=== PATIENT | male | born 1985 | race Caucasian/White ===

== ENCOUNTER 2024-08-13 12:28 | Emergency (ER) | payer BC, SELFPAY ==
[2024-08-13 12:33] VITALS: BP 153/85; PULSE 76; RESP 18; TEMP 36.9; O2SAT 100
--- NOTE | 2024-08-13 12:33 | ED.GENADULT ---
HPI - General Adult General Chief complaint: Urogenital Problems, Male Stated complaint: Back pain hard to urinate Time Seen by Provider: 08/13/24 12:32 History of Present Illness HPI narrative: Patient presents to the emergency department complaining of lower back pain and difficulty urinating. Patient states this started about a week ago and since has just gotten worse. Patient states he was seen for this before and there was nothing found. Patient states he is experiencing pain when he pees and also states he is having pain with bowel movements as well. Patient feels like there could be swelling making the flow of urine difficult . Denies fevers . 39-year-old man presenting to the emergency department with concern of severe back pain and some difficulty urinating. Has actually been urinating frequently. This seems to began about a week ago and is worsening. He is taking lots of Advil he reports. Latest stool which was 2 days ago was dark. Before that maybe was 4 days ago. Normally would have bowel movement every day. He does take omeprazole regularly since had had a similar occurrence of these pains about a year ago. Was told he had an ulcer. He does have some pain in the upper abdomen; he describes intermittent spasming in the left upper abdomen while he is at work. 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 Being evaluated before he thinks did include some imaging and nothing has ever been found. He is worried about maybe some prostatic inflammation as he is feeling full or pain in the groin area. No history of kidney stones. No fever although he reports his torso feeling hot. His back pain now is just across his back he gestures. Only way he can feel better he says this to curl up. He has more pain when he lays flat. History of appendicitis Related Data Home Medications ?Medication ?Instructions ?Recorded ?Confirmed alprazolam 1 mg tablet 1 mg PO DAILY PRN 08/13/24 08/13/24 dextroamphetamine-amphetamine 10 1 tab PO DAILY PRN 08/13/24 08/13/24 mg tablet dextroamphetamine-amphetamine 30 1 tab PO QAM 08/13/24 08/13/24 mg tablet omeprazole 40 mg capsule,delayed mg DAILY 08/13/24 release Previous Rx's ?Medication ?Instructions ?Recorded oxycodone 5 mg capsule 5 - 10 mg (1 - 2 x 5 mg) PO TID 08/13/24 PRN pain #8 caps sulfamethoxazole 800 1 tab PO BID #24 tabs 08/13/24 mg-trimethoprim 160 mg tablet (Bactrim DS) Allergies Allergy/AdvReac Type Severity Reaction Status Date / Time No Known Drug Allergies Allergy Verified 08/13/24 12:39 Review of Systems Status of ROS: Reports: 6 or more systems reviewed and unremarkable except as noted in History and below PFSH PFS Social History Smoking Status: Current every day smoker What tobacco products do you use: cigarettes Do you use any of these nicotine containing products: None How often do you have a drink containing alcohol: never AUDIT-C Alcohol total score: 0 Non-prescribed substance use: denies use Exam Narrative: Exam Narrative: Pleasant. There is a smell of cigarette smoke. Transitions a little uncomfortably. Is breathing easily. Lungs appear to be clear. Tattooed text across the upper back. He is sore to palpation generally through the musculature in his back. Not really with midline back tenderness. Some discomfort more around the left SI joint area than the right. Not with discrete flank tenderness. Abdomen is soft. Tender specifically in the left upper-most rectus musculature. No swelling apparent. He is sore also in the suprapubic area. I do not appreciate any particular swelling here. Margie's causes same side SI area pain. Genitourinary exam with tenderness to palpation about the right testicle and epididymal/cords up into the inguinal canal. I do not appreciate any swelling here. Prostate exam is not tender nor swollen. Guesstimate of 30 g. Some darker very small grains of stool on the glove. Well-perfused peripherally. Moving all extremities without difficulty. No lower leg edema. He thought his feet had been swollen earlier. Const: Vital Signs, click to edit/add: Vital Signs - 24 hr 08/13/24 12:33 Temperature 98.5 F Pulse Rate [Right Pulse Oximeter] 76 Respiratory Rate 18 Blood Pressure [Ri ght Upper Arm] 153/85 H Pulse Oximetry 100 Oxygen Delivery Me thod Room Air Documenting provider has reviewed patient's vital signs: yes Course Vital Signs Vital signs: Initial Vital Signs Temperature 98.5 F 08/13/24 12:33 Temperature Source Temporal Artery Scan 08/13/24 12:33 Pulse Rate 76 08/13/24 12:33 Pulse Rhythm Regular 08/13/24 12:33 Pulse Strength 3+ Normal 08/13/24 12:33 Respiratory Rate 18 08/13/24 12:33 Blood Pressure 153/85 H 08/13/24 12:33 Blood Pressure Mean 107 H 08/13/24 12:33 Blood Pressure Position Sitting 08/13/24 12:33 Pulse Oximetry 100 08/13/24 12:33 Oxygen Delivery Method Room Air 08/13/24 12:33 Vital Signs Temperature 98.5 F 08/13/24 12:33 Pulse Rate 76 08/13/24 12:33 Respiratory Rate 18 08/13/24 12:33 Blood Pressure 153/85 H 08/13/24 12:33 Pulse Oximetry 100 08/13/24 12:33 Oxygen Delivery Method Room Air 08/13/24 12:33 Temperature 97.5 F L 08/13/24 14:23 Pulse Rate 67 08/13/24 14:23 Respiratory Rate 18 08/13/24 14:23 Blood Pressure 146/100 H 08/13/24 14:23 Pulse Oximetry 100 08/13/24 14:23 Oxygen Delivery Method Room Air 08/13/24 14:23 Medications Administered Medications: Discontinued Medications Generic Name Dose Route Start Last Admin Trade Name Joseq PRN Reason Stop Dose Admin Sodium Chloride 1,000 mls @ 1,000 mls/hr 08/13/24 12:58 08/13/24 14:45 0.9 % Sodium Chloride 1000 Ml IV 08/13/24 13:57 Infused .Q1H ONE Infusion Ketorolac Tromethamine 30 mg 08/13/24 12:58 08/13/24 13:35 Ketorolac 30 Mg/Ml Inj IVP 08/13/24 12:59 30 mg ONCE ONE Administration Ondansetron HCl 4 mg 08/13/24 12:58 08/13/24 13:37 Ondansetron 2 Mg/Ml Inj IVP 08/13/24 12:59 4 mg ONCE ONE Administration Medical Decision Making MDM Narrative Medical decision making narrative: Appears to have a number of issues. I wonder if some epididymo-orchitis is causing some pain which has contributed to back tension and pain. Does appear to be musculoskeletal in origin on his back at least. Already taking a proton pump inhibitor with a history of ulcers. Perhaps has been aggravated by recent ibuprofen ingestion. Will check hemoglobin and other labs to warrant further imaging. Check renal function as well given ibuprofen ingestion he has reported. Bilateral nature suggest against ureteral stone and colic. Will look for other evidence of infection urine. IV fluids, ketorolac, Zofran as he had been reporting some nausea. Symptoms are little improved. White count is slightly elevated at 11.2. Trace intact blood is noted in urine but nothing really on micro. Overall labs are reassuring. I think is experiencing some epididymal orchitis and secondary musculoskeletal pain. Normal hemoglobin. Sounds as though there is also constipation. See patient discharge plan for further discussion Might need to wear some more snug briefs over the next week or 2. Can continue with lower dosed ibuprofen. Not to take more than up to 800 mg of ibuprofen though every 6 hours. Can take up to 1000 mg of acetaminophen per dose. These can be combined. Alternative the ibuprofen might be up to 500 mg naproxen 2 times daily. It would be a good idea to take ibuprofen or naproxen regularly but maybe just twice a day over the next week considering your stomach concerns. Take with a little food. Do what you can to quit smoking. Quit plan may still have some resources. It does sound as though you would benefit from a bowel aid. I would start with MiraLax equivalent. Take 2-3 doses daily each in 8 oz of liquid and adjust daily amount to stool consistency and frequency over the next week or 2. Continue to take your omeprazole for now. This is something that might be worth following up in primary care; to have a solid diagnosis of what your stomach issue might be. See handout for exercises for the sacral iliac joint. This should help your entire back as well. As discussed a small amount of oxycodone from [facility]. Partly as this is easier on your stomach. This is not something of course to take long-term. Prescribing Bactrim for your epididymo-orchitis. Take this for 12 days. Lab Data Lab results reviewed: Yes I reviewed the patient's lab results Labs: Lab Results 08/13/24 08/13/24 Range/Units 12:58 13:16 WBC 11.16 H (4.50-11.00) K/uL RBC 4.60 (4.30-5.90) m/uL Hgb 14.5 (13.5-17.5) gm/dL Hct 42.3 (37.0-53.0) % MCV 92 (80-100) fL MCH 32 (26-34) pg MCHC 34 (32-36) gm/dL RDW Coeff of Jaxson 12.1 (11.5-15.5) % Plt Count 316 (140-440) K/uL Neut % (Auto) 72.5 H (42.0-72.0) % Lymph % (Auto) 16.8 L (20-44) % [place] % (Auto) 7.2 (0.0-11.0) % Eos % (Auto) 3.2 (0.0-7.0) % Baso % (Auto) 0.2 (0.0-3.0) % Neut # (Auto) 8.10 H (1.7-7.0) K/uL Lymph # (Auto) 1.90 (0.90-2.90) K/uL [place] # (Auto) 0.80 (0.00-0.90) K/UL Eos # (Auto) 0.40 (0.00-0.50) K/uL Baso # (Auto) 0.00 (0.00-0.30) K/uL Abs Immat Gran (auto) 0.00 (0.00-0.30) K/uL Imm/Tot Granulo (auto) 0.1 % Sodium 136 (135-149) mmol/L Potassium 4.4 (3.6-5.1) mmol/L Chloride 102 (96-114) mmol/L Carbon Dioxide 28 (20-32) mmol/L Anion Gap 6 L (7-15) mEq/L BUN 18 (5-24) mg/dL Creatinine 0.7 (0.5-1.5) mg/dL Estimated GFR 121 ml/min Glucose 93 (60-115) mg/dL Calcium 8.5 (8.4-10.6) mg/dL Total Bilirubin 0.1 (0.1-1.5) mg/dL Direct Bilirubin 0.1 (0.0-0.5) mg/dL AST 32 (12-35) U/L ALT 54 H (4-50) U/L Alkaline Phosphatase 50 (40-150) U/L Total Protein 6.3 (6.0-8.3) g/dL Albumin 4.1 (3.3-5.0) g/dL Urine Color Yellow (Yellow) Urine Appearance Clear (Clear) Urine pH 6.5 (5.0-8.5) Ur Specific [place] 1.025 (1.000-1.030) Urine Protein Negative (Negative) Urine Glucose (UA) Negative (Negative) Urine Ketones Negative (Negative) Urine Blood Trace-intact A (Negative) Urine Nitrite Negative (Negative) Urine Bilirubin Negative (Negative) Urine Urobilinogen 0.2 (0.2-1.0) Ur Leukocyte Esterase Negative (Negative) Urine RBC 0-2 (0-2) Urine WBC 0-2 (0-5) Ur Squamous Epith Cells None (None-Few) Urine Bacteria None (None) Discharge Plan Discharge Clinical Impression: Epididymo-orchitis, Back pain, Sacroiliac joint pain Patient Disposition: Home, Self-Care Condition: Improved Additional Instructions: Might need to wear some more snug briefs over the next week or 2. Can continue with lower dosed ibuprofen. Not to take more than up to 800 mg of ibuprofen though every 6 hours. Can take up to 1000 mg of acetaminophen per dose. These can be combined. Alternative the ibuprofen might be up to 500 mg naproxen 2 times daily. It would be a good idea to take ibuprofen or naproxen regularly but maybe just twice a day over the next week considering your stomach concerns. Take with a little food. Do what you can to quit smoking. Quit plan may still have some resources. It does sound as though you would benefit from a bowel aid. I would start with MiraLax equivalent. Take 2-3 doses daily each in 8 oz of liquid and adjust daily amount to stool consistency and frequency over the next week or 2. Continue to take your omeprazole for now. This is something that might be worth following up in primary care; to have a solid diagnosis of what your stomach issue might be. See handout for exercises for the sacral iliac joint. This should help your entire back as well. As discussed a small amount of oxycodone from [facility]. Partly as this is easier on your stomach. This is not something of course to take long-term. Prescribing Bactrim for your epididymo-orchitis. Take this for 12 days. Prescriptions: New sulfamethoxazole-trimethoprim [Bactrim DS] 800-160 mg tablet 1 tab PO BID Qty: 24 0RF oxycodone 5 mg capsule 5 - 10 mg PO TID PRN (Reason: pain) Qty: 8 0RF No Action alprazolam 1 mg tablet 1 mg PO DAILY PRN dextroamphetamine-amphetamine 10 mg tablet 1 tab PO DAILY PRN omeprazole 40 mg capsule,delayed release(DR/EC) DAILY dextroamphetamine-amphetamine 30 mg tablet 1 tab PO QAM Follow Up/Referrals: Provider,Not a Local [Primary Care Provider] - Stand Alone Forms: [employer] Info Instructions
[2024-08-13 13:24] LABS: Appearance Urine Clear (Clear); Bilirubin Urine Negative (Negative); Blood Urine Trace-intact (Negative); Color Urine Yellow (Yellow); Glucose Urine Negative (Negative); Ketones Urine Negative (Negative); Leukocyte Esterase Urine Negative (Negative); Nitrite Urine Negative (Negative); Protein Urine Negative (Negative); Specific Gravity Urine 1.025 (1.000-1.030); Urobilinogen Urine 0.2 (0.2-1.0); pH Urine 6.5 (5.0-8.5)
[2024-08-13 13:27] LABS: Basophils Percent Auto 0.2 % (0.0-3.0); Eosinophils Percent Auto 3.2 % (0.0-7.0); Hematocrit 42.3 % (37.0-53.0); Hemoglobin* 14.5 gm/dL (13.5-17.5); Immature Granulocytes Pct Auto 0.1 %; Lymphocytes Percent Auto 16.8 % (20-44); Mean Corpuscular HGB Conc 34 gm/dL (32-36); Mean Corpuscular Hemoglobin 32 pg (26-34); Mean Corpuscular Volume 92 fL (80-100); Monocytes Percent Auto 7.2 % (0.0-11.0); Neutrophils Percent Auto 72.5 % (42.0-72.0); Platelet Count* 316 K/uL (140-440); RDW Coefficient of Variation % 12.1 % (11.5-15.5); White Blood Count* 11.16 K/uL (4.50-11.00)
[2024-08-13 13:32] LABS: Slide Review Reflex No
[2024-08-13 13:33] LABS: RBC Urine 0-2 (0-2); WBC Urine 0-2 (0-5)
[2024-08-13] MEDS: 0.9 % SODIUM CHLORIDE 1000 ml 1,000 ML IV (13:34)
[2024-08-13] MEDS: KETOROLAC 30 MG/ML inj IVP (13:35)
[2024-08-13] MEDS: ONDANSETRON 2 MG/ML inj 4 MG IVP (13:37)
[2024-08-13 13:41] LABS: Albumin* 4.1 g/dL (3.3-5.0); Chloride* 102 mmol/L (96-114); Sodium* 136 mmol/L (135-149)
[2024-08-13 13:42] LABS: Potassium* 4.4 mmol/L (3.6-5.1)
[2024-08-13 13:44] LABS: Alkaline Phosphatase* 50 U/L (40-150); Anion Gap 6 mEq/L (7-15); Aspartate Amino Transferase* 32 U/L (12-35); Bilirubin Direct* 0.1 mg/dL (0.0-0.5); Bilirubin Total* 0.1 mg/dL (0.1-1.5); Blood Urea Nitrogen* 18 mg/dL (5-24); Carbon Dioxide* 28 mmol/L (20-32); Creatinine* 0.7 mg/dL (0.5-1.5); Estimated Glomerular Filt Rate 121 ml/min; Glucose* 93 mg/dL (60-115); Total Protein* 6.3 g/dL (6.0-8.3)
[2024-08-13 13:45] LABS: Alanine Aminotransferase* 54 U/L (4-50); Calcium* 8.5 mg/dL (8.4-10.6)
--- OUTSIDE RECORDS SUMMARY | 2024-08-13 14:06 | XMS_ITS | Referral Summary ---
Author Organization [facility] Address [address] [place] [address] Care Team Providers Care Pediatrics Physician Name Role Phone No Ref-Primary, Physician Primary Care Provider Allergies No known active allergies Medications oxyCODONE (ROXICODONE) 5 MG tablet Take 1 tablet (5 mg) by mouth every 6 hours as needed for severe pain. 10 tablet 04/30/2024 Active ondansetron (ZOFRAN ODT) 4 MG ODT tab Take 1 tablet (4 mg) by mouth every 8 hours as needed for nausea. 10 tablet 04/30/2024 Active omeprazole (PRILOSEC) [address] capsule Take 1 capsule (40 mg) by mouth daily. 90 capsule 3 04/30/2024 Active OLANZapine zydis (ZYPREXA) 5 MG ODT Take 1 tablet (5 mg) by mouth daily as needed for other (Nausea). 10 tablet 05/04/2024 Active Active Problems Problem Noted Date Diagnosed Date Vitamin B12 deficiency (dietary) anemia 07/22/20 Generalized weakness 07/21/2022 Numbness and tingling 07/21/2022 Social History Tobacco Use Types Packs/Day Years Used Date Smoking Tobacco: Never Assessed Adolescent Education Answer Date Record ed Getting School Help Needed Not on file 04/15 Sex and Gender Information Value Date Recorded Sex Assigned at Not on file Legal Sex Male 12:53 PM CDT Gender Identity Not on file Sexual Orientation Not on file Last Filed Vital Signs Vital Sign Reading Time Taken Comments Blood Pressure 158/89 05/04/2024 8:01 AM CDT Pulse 87 05/04/2024 8:16 AM CDT Temperature 36.4 C (97.5 F) 05/04/2024 2:48 AM CDT Respiratory Rate 13 05/04/2024 8:16 AM CDT Oxygen Saturation 99% 05/04/2024 8:16 AM CDT Inhaled Oxygen Concentration - - Weight 68 kg (150 lb) 05/04/2024 2:48 AM CDT Height 175.3 cm (5' 9) 04/29/2024 11:14 PM CDT Body Mass Index 22.15 04/29/2024 11:14 PM CDT Plan of Treatment Not on file Procedures Procedure Name Priority Date/Time Associated Diagnosis Comments COMPREHENSIVE METABOLIC PANEL STAT 05/04/2024 4:44 AM CDT from Last 3 Months or Most Recently Relevant to Health Maintenance Results * (ABNORMAL) Comprehensive metabolic panel (05/04/2024 4:44 AM CDT) Sodium 137 135 - 145 mmol/L 05/04/2024 5:[address] [facility] Potassium 3.9 3.4 - 5.3 mmol/L 05/04/2024 5:[address] [facility] Carbon Dioxide (CO2) 26 22 - 29 mmol/L 05/04/2024 5:[address] [facility] Anion Gap 10 7 - 15 mmol/L 05/04/2024 5:[address] [facility] Urea Nitrogen 11.1 6.0 - 20.0 mg/dL 05/04/2024 5:[address] [facility] Creatinine 0.78 0.67 - 1.17 mg/dL 05/04/2024 5:[address] [facility] GFR Estimate >90 >60 mL/min/1.7 3m2 05/04/2024 5:[address] [facility] Comment:eGFR calculated usin 2020 CKD-EPI equation. Calcium 8.7(L) 8.8 - 10.4 mg/dL 05/04/2024 5:[address] [facility] Comment:Reference intervals for this test were updated on 02/07/2024 to reflect our healthy population more accurately. There may be differences in the flagging of prior results with similar values performed with this method. Those prior results can be interpreted in the context of the updated reference intervals. Chloride 101 98 - 107 mmol/L 05/04/2024 5:07 AM CDT [facility] Glucose 126(H) 70 - 99 mg/dL 05/04/2024 5:07 AM CDT [facility] Alkaline Phosphatase 51 40 - 150 U/L 05/04/2024 5:07 AM CDT [facility] AST 25 0 - 45 U/L 05/04/2024 5:07 AM CDT [facility] ALT 27 0 - 70 U/L 05/04/2024 5:07 AM CDT [facility] Protein Total 6.2(L) 6.4 - 8.3 g/dL 05/04/2024 5:07 AM CDT [facility] Albumin 4.1 3.5 - 5.2 g/dL 05/04/2024 5:07 AM CDT [facility] Bilirubin Total <0.2 <=1.2 mg/dL 05/04/2024 5:[address] [facility] Blood VENOUS LINE / Unknown Venipuncture / Unknown 05/04/2024 4:44 AM CDT 05/04/2024 4:48 AM CDT us Per Schmitt MD LAB - BLOOD ORDERABLES Final Res ult [facility] [address] [place] [address] from Last 3 Months or Most Recently Relevant to Health Maintenance Insurance [employer] Care Teams Pediatrics Physician Relationship Specialty Start Date End Date No Ref-Primary, Physician PCP - General 02/24/18
--- OUTSIDE RECORDS SUMMARY | 2024-08-13 14:06 | XMS_ITS | Patient Health Summary ---
Author Organization [facility] Address [address] [place] [address] Care Team Providers Care Advertising Strategist Name Role Phone Unavailable Primary Care Provider Unavailabl e Note from [facility],non-owned Affiliates and Associated Physician Practices is amultiple site organization consisting of ambulatory clinics and hospital sitesin [place], [place], [place] and [place]. This disclosure is being madepursuant to the Care Everywhere program and may not contain all information available regarding this patient. Last updated 18.[facility] Allergies No known active allergies Medications * Be aware that medications may not be up to date on this document. Alwaysverify current medications with the patient. * hydrOXYzine hcl (ATARAX) 25 MG tablet(Started 02/14/2019) Take 1-2 tablets by mouth 3 times daily as needed (anxiety) Social History Tobacco Use Types Packs/Day Years Used Date Smoking Tobacco: Every Day Cigarettes Smokeless Tobacco: Never Alcohol Use Standard Drinks/Week Comments Yes 0 (1 standard drink = 0.6 oz pur e alcohol) daily Sex and Gender Information Value Date Recorded Sex Assigned at Not on file Gender Identity Not on file Sexual Orientation Not on file Last Filed Vital Signs Vital Sign Reading Time Taken Comments Blood Pressure 125/81 02/14/2019 12:08 PM CDT Pulse 66 02/14/2019 12:08 PM CDT Temperature 36.7 C (98 F) 02/14/2019 12:08 PM CDT Respiratory Rate 18 02/14/2019 12:08 PM CDT Oxygen Saturation 98% 02/14/2019 12:08 PM CDT Inhaled Oxygen Concentration - - Weight 70.3 kg (155 lb) 02/14/2019 9:17 AM CDT Height 175.3 cm (5' 9) 02/14/2019 9:17 AM CDT Body Mass Index 22.89 02/14/2019 9:17 AM CDT Procedures * CARDIAC EKG ORDER(Performed 02/15/2019) * XR CHEST 2VW(Performed 02/14/2019) Performed for SOB (shortness of breath) * EKG 12-LEAD(Performed 02/14/2019) Performed for SOB (shortness of breath) * LIPASE BLOOD(Performed 02/14/2019) * COMPREHENSIVE METABOLIC PANEL(Performed 02/14/2019) * CBC W AUTO DIFFERENTIAL(Performed 02/14/2019) Results * CARDIAC EKG ORDER (02/15/2019 6:45 PM CDT) Narrative 02/15/2019 6:45 PM CDT Ordered by an unspecified provider. Scanned Document CARDIAC SERVICES ORD ERABLES * XR CHEST PA AND LATERAL (02/14/2019 11:19 AM CDT) Anatomical Region Laterality Modality Chest Radiographic Lisa ging 02/14/2019 11:2 1 AM CDT Impressions 02/14/2019 11:22 AM CDT No active disease. Reading Radiologist: Gallo Wyatt MD on 02/14/2019 at 11:22 AM Narrative 02/14/2019 11:22 AM CDT Chest 2 views: History: Intermittent episodes of shortness of breath, dry mouth, blurred vision and shaking for the past 2 weeks; facial numbness yesterday. History of anxiety. Technique: Frontal and lateral views of the chest were obtained on 02/14/2019. No relevant prior study is available. Findings: The lungs are clear with no pleural effusion or pneumothorax. The heart and mediastinum are unremarkable. Procedure Note Gallo Wyatt MD - 02/14/2019 Chest 2 views: History: Intermittent episodes of shortness of breath, dry mouth, blurred vision and shaking for the past 2 weeks; facial numbness yesterday. History of anxiety. Technique: Frontal and lateral views of the chest were obtained on 02/14/2019. No relevant prior study is available. Findings: The lungs are clear with no pleural effusion or pneumothorax. The heart and mediastinum are unremarkable. IMPRESSION No active disease. Reading Radiologist: Gallo Wytat MD on 02/14/2019 at 11:22 AM [facility] DIAGNOSTIC IMAGING O RDERABLES * EKG 12-LEAD (02/14/2019 9:21 AM CDT) Pathologist [facility] Ventricular Rate 57 BPM [facility] Atrial Rate 57 BPM [facility] P-R Interval 120 ms [facility] QRS Duration ms 92 ms [facility] Q-T Interval ms 406 ms [facility] QTC Calculation (Bezet) 395 ms [facility] Calculated P [place] 54 degrees [facility] Calculated R [place] 74 degrees [facility] Calculated T [place] 60 degrees [facility] Interpretation EKG Sinus bradycardia Otherwise normal ECG No previous ECGs available Confirmed by PAULO NI MD ([id number]) on 02/15/2019 2:13:18 PM [facility] 02/14/2019 9:21 AM CDT 02/15/2019 2:13 PM CDT James Esquivel DO ECG ORDERABLES [facility] * (ABNORMAL) CBC W AUTO DIFFERENTIAL (02/14/2019 9:17 AM CDT) Pathologist [facility] WBC 6.3 4.4 - 10.7 x10E9/L 02/14/2019 9:31 AM CDT [facility] WBC Corrected x10E9/L 02/14/2019 9:31 AM CDT [facility] RBC 4.92 3.80 - 5.40 x10E12/L 02/14/2019 9:31 AM CDT [facility] Hemoglobin 16.9 12.0 - 17.6 gm/dL 02/14/2019 9:31 AM CDT [facility] Hematocrit 47.0 35.2 - 51.7 % 02/14/2019 9:31 AM CDT [facility] MCV 95.5 80.7 - 98.3 fl 02/14/2019 9:31 AM CDT [facility] MCH 34.3(H) 26.7 - 34.0 pg 02/14/2019 9:31 AM CDT [facility] MCHC 36.0(H) 30.8 - 35.9 gm/dL 02/14/2019 9:31 AM CDT [facility] Platelet Count 261 153 - 416 x10E9/L 02/14/2019 9:31 AM CDT [facility] RDW-CV 12.2 12.1 - 14.9 % 02/14/2019 9:31 AM CDT [facility] MPV 9.3(L) 9.4 - 12.9 fl 02/14/2019 9:31 AM CDT [facility] Neutrophils % 56.0 44.0 - 73.0 % 02/14/2019 9:31 AM CDT [facility] Lymphocytes % 33.8 20.0 - 43.0 % 02/14/2019 9:31 AM CDT [facility] Monocytes % 8.5 5.0 - 13.0 % 02/14/2019 9:31 AM CDT [facility] Eosinophils % 1.1 0.0 - 6.0 % 02/14/2019 9:31 AM CDT [facility] Basophils % 0.3 0.0 - 2.0 % 02/14/2019 9:31 AM CDT [facility] Immature Granulocytes 0.3 0 - 1 % 02/14/2019 9:31 AM CDT [facility] Neutrophil Absolute 3.51 2.01 - 7.14 x10E9/L 02/14/2019 9:31 AM CDT [facility] Lymphocytes Absolute 2.12 1.07 - 3.94 x10E9/L 02/14/2019 9:31 AM CDT [facility] Monocytes Absolute 0.53 0.26 - 1.07 x10E9/L 02/14/2019 9:31 AM CDT [facility] Eosinophils Absolute 0.07 0 - 0.47 x10E9/L 02/14/2019 9:31 AM CDT [facility] Basophils Absolute 0.02 0 - 0.08 x10E9/L 02/14/2019 9:31 AM CDT [facility] Immature Granulocytes Absolute 0.02 0.00 - 0.06 x10E9/L 02/14/2019 9:31 AM CDT [facility] nRBC Auto 0 /100 WBC 02/14/2019 9:31 AM CDT [facility] Blood BLOOD SPECIMEN / Unknown Venipuncture / Unknown 02/14/2019 9:17 AM CDT 02/14/2019 9:22 AM CDT James Esquivel DO LAB - HEMATOLOGY ORD ERABLES [facility] [address] [place] [address] * (ABNORMAL) COMPREHENSIVE METABOLIC PANEL (02/14/2019 9:17 AM CDT) Glucose 86 74 - 106 mg/dL 02/14/2019 9:40 AM CDT [facility] Sodium 140 136 - 145 mmol/L 02/14/2019 9:40 AM CDT [facility] Potassium 4.0 3.5 - 5.1 mmol/L 02/14/2019 9:40 AM CDT [facility] Chloride 101 98 - 107 mmol/L 02/14/2019 9:40 AM CDT [facility] CO2 28 23 - 31 mmol/L 02/14/2019 9:40 AM CDT [facility] Calcium 9.5 8.4 - 10.2 mg/dL 02/14/2019 9:40 AM CDT [facility] Anion Gap 11 8 - 16 mmol/L 02/14/2019 9:40 AM CDT [facility] BUN 9 8.9 - 20.6 mg/dL 02/14/2019 9:40 AM CDT [facility] Creatinine 0.92 0.73 - 1.18 mg/dL 02/14/2019 9:40 AM CDT [facility] Alkaline Phosphatase 66 40 - 150 U/L 02/14/2019 9:40 AM CDT [facility] ALT 108(H) 13 - 61 U/L 02/14/2019 9:40 AM CDT [facility] AST 86(H) 5 - 34 U/L 02/14/2019 9:40 AM CDT [facility] Protein Total 7.4 6.4 - 8.3 gm/dL 02/14/2019 9:40 AM CDT [facility] Albumin 4.7 3.5 - 5.2 gm/dL 02/14/2019 9:40 AM CDT [facility] Bilirubin Total 0.5 0.2 - 1.2 mg/dL 02/14/2019 9:40 AM CDT [facility] eGFR by MDRD >60 >60 mL/min/1.7 3m2 02/14/2019 9:40 AM CDT [facility] eGFR by MDRD >60 >60 mL/min/1.7 3m2 02/14/2019 9:40 AM CDT [facility] Blood BLOOD SPECIMEN / Unknown Venipuncture / Unknown 02/14/2019 9:17 AM CDT 02/14/2019 9:22 AM CDT James Esquivel DO LAB - CHEMISTRY ORDEmilia [facility]ANG[facility]A [facility] [address] [address] * LIPASE BLOOD (02/14/2019 9:17 AM CDT) Lipase 12 8 - 78 U/L 02/14/2019 11:18 AM CDT [facility] Blood BLOOD SPECIMEN / Unknown Venipuncture / Unknown 02/14/2019 9:17 AM CDT 02/14/2019 9:22 AM CDT Cleve Trevino PA-C LAB - CHEMISTRY ORDEmilia [facility]ANG[facility]A [facility] [address] [address]
--- OUTSIDE RECORDS SUMMARY | 2024-08-13 14:06 | XMS_ITS | Clinical Summary ---
Author Organization [facility] Address [address] [place] [address] Care Team Providers Care Light Rail Operator Name Role Phone Unavailable Primary Care Provider Unavailabl e Source Comments [facility],non-owned Affiliates and Associated Physician Practices is amultiple site organization consisting of ambulatory clinics and hospital sitesin [place], [place], [place] and [place]. This disclosure is being madepursuant to the Care Everywhere program and may not contain all information available regarding this patient. Last updated 18.[facility] Allergies No known active allergies Medications * Be aware that medications may not be up to date on this document. Alwaysverify current medications with the patient. Medication Sig Dispensed Refills Start Date End Date Status hydrOXYzine hcl (ATARAX) 25 MG tablet Take 1-2 tablets by mouth 3 times daily as needed (anxiety) 20 tablet 02/14/2019 Active Social History Tobacco Use Types Packs/Day Years [...] Mass Index 22.89 02/14/2019 9:17 AM CDT Plan of Treatment Health Maintenance Due Date Last Done Comments HIV SCREENING 2001 HEPATITIS C SCREENING 02/17/2004 DTAP/TDAP/TD VACCINES (1 - Tdap) 2005 HEPATITIS B VACCINE (1 of 3 - 19+ 3-dose series) 2005 PNEUMOCOCCAL VACCINE (1 of 2 - PCV) 2005 COVID-19 VACCINE (1 - 2023-2 5 season) 2024 INFLUENZA VACCINE (#1) 2024 DEPRESSION SCREENING 07/25/2024 ZOSTER VACCINE (1 of 2) 02/22/2036 HIB VACCINE Aged Out No longer eligi ble based on patient's age to complete this topic HPV VACCINE Aged Out No longer eligi ble based on patient's age to complete this topic MENINGOCOCCAL (Group B) VACCINE Aged Out No longer eligible based on patient's age to complete this topic MENINGOCOCCAL VACCINE Aged Out No mani zaida eligible based on patient's age to complete this topic
--- OUTSIDE RECORDS SUMMARY | 2024-08-13 14:06 | XMS_ITS | Clinical Summary ---
Author Organization [place] Address [address] [place] [address] Care Team Providers Care Accounts Receivable Manager Name Role Phone No Ref-Primary, Physician Primary [...] 04/29/2024 11:14 PM CDT Plan of Treatment Health Maintenance Due Date Last Done Comments ADVANCE CARE PLANNING 1986 ANNUAL REVIEW OF HM ORDERS 1986 YEARLY PREVENTIVE VISIT 1989 HIV SCREENING 2001 HEPATITIS C SCREENING 02/22/2004 HEPATITIS B IMMUNIZATION (1 of 3 - 19+ 3-dose series) 2005 DTAP/TDAP/TD IMMUNIZATION (1 - Tdap) 2011 COVID-19 Vaccine ( - season) 2024 INFLUENZA VACCINE (#1) 2024 PHQ-2 (once per calendar year) 2024 GLUCOSE 05/04/2027 05/04/2024, 04/24, 04/29/2024, Additional history exists RSV VACCINE (1 - 1-dose 75+ series) 2061 HPV IMMUNIZATION Aged Out No longer e ligible based on patient's age to complete this topic MENINGITIS IMMUNIZATION Aged Out No l onger eligible based on patient's age to complete this topic Pneumococcal Vaccine: Pediatrics (0 to 5 Years) and At-Risk Patients (6 to 49 Years) Aged Out No longer eligible based on patient's age to complete this topic RSV MONOCLONAL ANTIBODY Aged Out No l onger eligible based on patient's age to complete this topic Procedures Procedure Name Priority Date/Time Associated Diagnosis Comments COMPREHENSIVE METABOLIC PANEL STAT 05/04/2024 4:44 AM CDT from Last 3 Months or Most Recently Relevant to Health Maintenance Results * (ABNORMAL) Comprehensive metabolic panel (05/04/2024 4:44 AM CDT) Sodium 137 135 - 145 mmol/L 05/04/2024 5:07 AM CDT [facility] Potassium 3.9 3.4 - 5.3 mmol/L 05/04/2024 5:[address] [facility] Carbon Dioxide (CO2) 26 22 - 29 mmol/L 05/04/2024 5:[address] [facility] Anion Gap 10 7 - 15 mmol/L 05/04/2024 5:[address] [facility] Urea Nitrogen 11.1 6.0 - 20.0 mg/dL 05/04/2024 5:[address] [facility] Creatinine 0.78 0.67 - 1.17 mg/dL 05/04/2024 5:[address] [facility] GFR Estimate >90 >60 mL/min/1.7 3m2 05/04/2024 5:[address] [facility] Comment:eGFR calculated usin 2020 CKD-EPI equation. Calcium 8.7(L) 8.8 - 10.4 mg/dL 05/04/2024 5:[address] [facility] Comment:Reference intervals for this test were updated on 02/07/2024 to reflect our healthy population more accurately. There may be differences in the flagging of prior results with similar values performed with this method. Those prior results can be interpreted in the context of the updated reference intervals. Chloride 101 98 - 107 mmol/L 05/04/2024 5:[address] [facility] Glucose 126(H) 70 - 99 mg/dL 05/04/2024 5:[address] [facility] Alkaline Phosphatase 51 40 - 150 U/L 05/04/2024 5:[address] [facility] AST 25 0 - 45 U/L 05/04/2024 5:[address] [facility] ALT 27 0 - 70 U/L 05/04/2024 5:[address] [facility] Protein Total 6.2(L) 6.4 - 8.3 g/dL 05/04/2024 5:[address] [facility] Albumin 4.1 3.5 - 5.2 g/dL 05/04/2024 5:[address] [facility] Bilirubin Total <0.2 <=1.2 mg/dL 05/04/2024 5:[address] [facility] Blood VENOUS LINE / Unknown Venipuncture / Unknown 05/04/2024 4:44 AM CDT 05/04/2024 4:48 AM CDT us Per Schmitt MD LAB - BLOOD ORDERABLES Final Res ult [facility] [address] [place] [address], [facility] from Last 3 Months or Most Recently Relevant to Health Maintenance Insurance [employer] Care Teams Accounts Receivable Manager Relationship Specialty Start Date End Date No Ref-Primary, Physician PCP - General 02/24/18
--- OUTSIDE RECORDS SUMMARY | 2024-08-13 14:06 | XMS_ITS | Clinical Summary ---
Author Organization [facility] [place], [place] [address] Care Team Providers Care User Interface Designer Name Role Phone Clinic, No Pcp Or Primary Care Provider Unavaila ble Allergies No known active allergies Medications No known medications Active Problems No known active problems Family History Medical History Relation Name Comments Hyperlipidemia Father Hypertension Father Cancer-colon Maternal Grandfather Heart Disease Mother rheumatic feve r Psychiatric illness Mother depressi on Diabetes Paternal Aunt Arthritis Sister 2 ra Relation Name Status Comments Brother Alive Daughter Kinzyn Alive Father Alive Maternal Grandfather Mother Alive Paternal Aunt Sister 1 Alive Sister 2 Son 1 Kydon Alive [facility] Al[facility] Social History Tobacco Use Types Packs/Day Years Used Date Smoking Tobacco: Every Day Cigarettes 0.5 12 Started: 07/25/2014 Tobacco Cessation:Ready to Q uit: Not Asked; Counseling Given: Not Answered Comments:Smoking 0.5-1 ppd Alcohol Use Standard Drinks/Week Comments Not Currently 1 (1 standard drink = 0.6 oz pur e alcohol) sober 4 months Sex and Gender Information Value Date Recorded Sex Assigned at Not on file Legal Sex Male 1:57 PM CDT Gender Identity Not on file Sexual Orientation Not on file 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- [employer] Not on file Not on keke e Not on file Obstetrics History Last Filed Vital Signs Vital Sign Reading Time Taken Comments Blood Pressure 111/68 07/21/2022 2:05 AM PRODUCTION LEADER Pulse 59 07/21/2022 2:05 AM PRODUCTION LEADER Temperature 36.8 C (98.2 F) 07/21/2022 2:05 AM PRODUCTION LEADER Respiratory Rate 16 07/21/2022 2:05 AM PRODUCTION LEADER Oxygen Saturation 97% 07/21/2022 2:05 AM PRODUCTION LEADER Inhaled Oxygen Concentration - - Weight 73 kg (161 lb) 07/20/2022 8:55 PM PRODUCTION LEADER Height 175.3 cm (5' 9) 07/20/2022 8:55 PM PRODUCTION LEADER Body Mass Index 23.78 07/20/2022 8:55 PM PRODUCTION LEADER Plan of Treatment Health Maintenance Due Date Last Done Comments Tdap 1997 HIV for age 15-65 2001 Hepatitis C screening for ag e 18-79 02/22/2004 Tetanus booster 2006 BMI (ht and wt on same day) for age 18+ 10/14/2016 10/15/2015 Depression screening for age 12+ 10/14/2016 10/15/19 16 Lipids for age 35-44 2021 COVID-19 vaccine series (2023- season) 2024 Influenza for age 9-49 03/25/2024 Pneumococcal series for age 6-49 Aged Out No longer eligible based on patient's age to complete this topic Goals Goal Patient Goal Type Associated Problems Recent Progress Patient-Stated? Author BLOOD PRESSURE - MAINTAINS BP less than 140/90 Blood Pressure No Karishma Sagastume MD Insurance MEDICAID Care Teams User Interface Designer Relationship Specialty Start Date End Date Clinic, No Pcp Or . PCP - General 10/15/15
--- OUTSIDE RECORDS SUMMARY | 2024-08-13 14:06 | XMS_ITS | Referral Summary ---
Author Organization [facility] Address [address] [place] [address] Care Team Providers Care Inspector Balance Truing Name Role Phone Unavailable Primary Care Provider Unavailabl e Source Comments [facility],non-owned Affiliates and Associated Physician Practices is amultiple site organization consisting of ambulatory clinics and hospital sitesin [place], [place], [place] and [place]. This disclosure is being madepursuant to the Care Everywhere program and may not contain all information available regarding this patient. Last updated 18.[facility] Allergies No known active allergies Medications * [...] 02/14/2019 9:17 AM CDT Plan of Treatment Not on file
--- OUTSIDE RECORDS SUMMARY | 2024-08-13 14:06 | XMS_ITS | Clinical Summary ---
Author Organization [facility] Address [address] [address] Care Team Providers Care School Age Teacher Name Role Phone No Primary/Referring, Phy Primary Care Provider Unavailable Source Comments You are receiving this document as you are listed as the primary care provider,follow-up provider, or the patient has been referred to you for consultation.This is in compliance with the Medicare and[facility] Incentive Program,which states Providers who transition their patient to another setting of careor provider of care or refers their patient to another provider of care shouldprovide summary care record for each transition of care or referral. [employer] Allergies No known active allergies Medications Medication Sig Dispensed Refills Start Date End Date Status guaiFENesin (AKA MUCINEX) 600 MG 12 hour release tablet Take 1,200 mg by mouth two times a day. Active Multiple Vitamins-Minerals (EMERGEN-C IMMUNE OR) Active benzonatate (AKA TESSALON) 100 MG capsule Take 1-2 Caps by mouth three times a day as needed for Cough. 30 Cap 0 04/26/2015 Active fluticasone (AKA FLONASE) 50 MCG/ACT nasal solution Apply or instill 2 Sprays into both nostrils daily. 16 g 0 04/26/2015 Active aspirin 325 MG tablet Take 325 mg by mouth daily. Active LORazepam (ATIVAN) 0.5 MG tablet Take 1 Tab by mouth every 8 hours as needed for Anxiety. 6 Tab 0 06/27/2016 Active nicotine (NICODERM CQ) 21 MG/24HR patchIndications:N icotine Dependence Apply 1 Patch to skin every 24 hours. Remove old patch with each new application. 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 Vitamin B12 deficiency (dietary) anemia 07/22/20 Numbness and tingling 07/21/2022 Generalized weakness 07/21/2022 Social History Tobacco Use Types Packs/Day Years Used Date Smoking Tobacco: Every Day Cigarettes Alcohol Use Standard Drinks/Week Comments No 0 (1 standard drink = 0.6 oz pur e alcohol) Sex and Gender Information Value Date Recorded Sex Assigned at Not on file Gender Identity Not on file Sexual Orientation Not on file Last Filed Vital Signs Vital Sign Reading Time Taken Comments Blood Pressure 134/85 07/22/2022 1:28 PM [employer] Pulse 67 07/22/2022 2:02 PM [employer] [facility] Temperature 36.7 C (98 F) 07/22/2022 1:28 PM [employer] [facility] Respiratory Rate 18 07/22/2022 1:28 PM [employer] Oxygen Saturation 98% 07/22/2022 1:28 PM [employer] Inhaled Oxygen Concentration - - Weight 72.6 kg (160 lb) 07/21/2022 3:00 AM [employer] [facility] Height 175.3 cm (5' 9) 07/21/2022 3:00 AM [employer] [facility] Body Mass Index 23.63 07/21/2022 3:00 AM [facility] [employer] [facility] Plan of Treatment Health Maintenance Due Date Last Done Comments Pneumococcal (1 - PCV) 02/22/1992 Adult Preventive Visit 02/22/2004 HepB (1) 2005 DTaP/Tdap/Td (1 - Tdap) 02/08/2007 02/07/2007 Cholesterol 2021 COVID-19 Vaccine ( - 2023-2 5 season) 2024 Influenza (#1) 2024 Zoster/Shingles (1 of 2) 02/22/2036 HIV Screening (Preventive Services) Completed 07/21/2022 Hep C Screening (Preventive Services) Completed 07/21/2022 HPV Vaccine Aged Out No longer eligi ble based on patient's age to complete this topic HepA Aged Out No longer eligi ble based on patient's age to complete this topic Hib Aged Out No longer eligi ble based on patient's age to complete this topic IPV (Polio) Aged Out No longer eligi ble based on patient's age to complete this topic MCV4 Aged Out No longer eligi ble based on patient's age to complete this topic Procedures Procedure Name Priority Date/Time Associated Diagnosis Comments HIV 1/2 AG/AB 4TH GEN STAT 07/21/2022 5:00 AM [facility] [employer] [facility] HEPATITIS PANEL ACUTE WITH REFLEX TO CONFIRMATION STAT 07/21/2022 5:00 AM [facility] [employer] [facility] from Last 3 Months or Most Recently Relevant to Health Maintenance Results * Hepatitis Panel with Reflex to Confirmation (07/21/2022 5:00 AM [facility] [facility]) Hepatitis A Antibody, IgM Negative (Non Reactive) Negative (Non Reactive) 07/21/2022 11:31 AM [facility] Comment:IgM anti-HAV not det ected. Does not exclude the possibility of exposure to or infection with HAV. Levels of IgM anti-HAV may be below the cut-off in early infection. Hepatitis Bc Antibody,IgM Negative (Non Reactive) Negative (Non-Reacti ve) 07/21/2022 11:31 AM [facility] Comment:IgM anti-HBc not det ected. Does not exclude the possibility of exposure to or infection with HBV. Hepatitis B Surface Antigen Negative (Non Reactive) Negative (Non Reactive) 07/21/2022 11:31 AM [facility] Hepatitis C Antibody Negative (Non Reactive) Negative (Non Reactive) 07/21/2022 11:31 AM [facility] [employer] [facility] Comment:Antibodies to HCV no t detected. Does not exclude the possiblity of exposure to HCV. Blood Venipuncture / Unknown 07/21/2022 5:00 AM [facility] [employer] [facility] 07/21/2022 5:03 AM [facility] [employer] [facility] Earle Garnica MD LAB_[address] [facility] [address] [phone] * HIV 1/2 Ag/Ab 4th Generation (07/21/2022 5:00 AM [facility] [employer] [facility]) HIV 1/2 Antigen/Antib arie (4th generation) Negative (Non Reactive) Negative (Non Reactive) 07/21/2022 5:47 AM [facility] Comment:HIV-1 p24 Antigen an d HIV-1/HIV-2 Antibody not detected Blood Venipuncture / Unknown 07/21/2022 5:00 AM [facility] [employer] [facility] 07/21/2022 5:03 AM [facility] [employer] [facility] Earle Garnica MD LAB_1 [place] [address], [facility] [phone] from Last 3 Months or Most Recently Relevant to Health Maintenance Advance Directives * Full Code (Latest Code Status on File) Date Activated Date Inactivated Comments 07/21/2022 4:02 AM 07/22/2022 7:00 PM Care Teams School Age Teacher Relationship Specialty Start Date End Date No Primary/Referring, Phy PCP - General 07/21/22
--- OUTSIDE RECORDS SUMMARY | 2024-08-13 14:07 | XMS_ITS | Clinical Summary ---
Author Organization [facility] Address [address] [place] [address]. [place], [place] [address] [place] [id number] Care Team Providers Care Production Floater Name Role Phone None, Provider Primary Care Provider Unavaila ble Allergies No known active allergies Medications No known medications Active Problems No known active problems Social History Tobacco Use Types Packs/Day Years Used Date Smoking Tobacco: Every Day Cigarettes Passive Smoke Exposure: Never Smokeless Tobacco: Never Tobacco Cessation:Ready to Q uit: No; Counseling Given: Yes Alcohol Use Standard Drinks/Week Comments Yes 0 (1 standard drink = 0.6 oz pur e alcohol) occasionally Sex and Gender Information Value Date Recorded Sex Assigned at Not on file Legal Sex Male 7:29 AM CDT Gender Identity Not on file Sexual Orientation Not on file Last Filed Vital Signs Vital Sign Reading Time Taken Comments Blood Pressure 162/98 04/14/2023 8:21 AM CDT Pulse 94 04/14/2023 8:21 AM CDT Temperature 36.6 C (97.8 F) 04/14/2023 8:21 AM CDT Respiratory Rate 16 04/14/2023 8:21 AM CDT Oxygen Saturation 97% 04/14/2023 8:21 AM CDT Inhaled Oxygen Concentration - - Weight 72.8 kg (160 lb 6.4 oz) 04/14/2023 8:21 A M CDT Height 175.3 cm (5' 9) 04/14/2023 8:21 AM CDT Body Mass Index 23.69 04/14/2023 8:21 AM CDT Plan of Treatment Health Maintenance Due Date Last Done Comments Annual Physical 1989 Pneumococcal Vaccine: Pediat rics (0 to 5 Years) and At-Risk Patients (6 to 64 Years) (1 of 2 - PCV) 02/22/1992 Hepatitis C 02/22/2004 Hepatitis B Vaccines (1 of 3 - 19+ 3-dose series) 2005 DTaP, Tdap and Td Vaccines ( 1 - Tdap) 02/08/2007 02/07/2007 COVID-19 Vaccine (2023-2 5 season) 2024 Influenza Adult (#1) 2024 HPV Vaccines Aged Out No longer eligi ble based on patient's age to complete this topic Meningococcal Vaccine Aged Out No mani zaida eligible based on patient's age to complete this topic RSV Immunizations Under 20 Months Aged Out No longer eligible based on patient's age to complete this topic Care Teams Production Floater Relationship Specialty Start Date End Date None, Provider, MD PCP - General UNKNOWN PHYSICIAN SPECIALTY 04/14/23
[2024-08-13 14:23] VITALS: BP 146/100; PULSE 67; RESP 18; TEMP 36.4; O2SAT 100
== END 2024-08-13 14:47 | disposition home or self-care (01) ==
PROVIDERS: Emergency Provider Family Medicine
DX: N45.3 Epididymo-orchitis (principal); M53.3 Sacrococcygeal disorders, not elsewhere classified
CPT/HCPCS: 36415; 51798; 80048; 80076; 81001; 85025; 96374; 96375; 99284; J1885; J2405; J7030

== ENCOUNTER 2024-08-16 08:36 | Emergency (ER) | payer BC, SELFPAY ==
[2024-08-16 08:40] VITALS: BP 160/100; PULSE 87; RESP 18; TEMP 37.2; O2SAT 100; BMI 22.9
--- NOTE | 2024-08-16 09:06 | ED_ITS ---
HPI - General Adult General Chief complaint: Back Injury/Pain Stated complaint: Mid/lower back pain Time Seen by Provider: 08/16/24 08:57 History of Present Illness HPI narrative: Patient presents to the emergency department complaining of lower back pain . Patient also complaining of upper abdominal pain as well as tinnitus. Patient states he is having the same symptoms he was having a few days ago when he was seen in the ER. He feels the pain medication he was sent home with did not help his pain. Abdominal pain gets worse when he eats anything other than crackers or drinking water. 39-year-old man returning to the emergency department after being seen 3 days ago with similar complaints. Primary complaint is intense burning in the epigastrium with any food ingestion. Maybe crackers help it feel little bit better. Also has pain in the midback bilaterally. Feels like it radiates down his sides. Talks about pain in his kidneys. Is says the pain medication that he was given including oxycodone has not helped. He has not initiated the recommended MiraLax equivalent and still has not had a bowel movement now for maybe 5 or 6 days. Did attempt to make an appointment in clinic he called this morning but slots were booked. Had been recommended for follow-up with consideration of an EGD. Groin area pain is a little improved. Related Data Home Medications ?Medication ?Instructions ?Recorded ?Confirmed alprazolam 1 mg tablet 1 mg PO DAILY PRN 08/13/24 08/16/24 dextroamphetamine-amphetamine 10 1 tab PO DAILY PRN 08/13/24 08/16/24 mg tablet dextroamphetamine-amphetamine 30 1 tab PO QAM 08/13/24 08/16/24 mg tablet omeprazole 40 mg capsule,delayed mg DAILY 08/13/24 release Previous Rx's ?Medication ?Instructions ?Recorded sulfamethoxazole 800 1 tab PO BID #24 tabs 08/13/24 mg-trimethoprim 160 mg tablet (Bactrim DS) lidocaine HCl 2 % mucosal solution 10 - 15 ml PO Q8H PRN #100 mL 08/16/24 omeprazole 40 mg capsule,delayed 40 mg PO BID #60 caps 08/16/24 release sucralfate 1 gram tablet 1 g PO BID #60 tabs 08/16/24 Allergies Allergy/AdvReac Type Severity Reaction Status Date / Time No Known Drug Allergies Allergy Verified 08/16/24 10:05 Review of Systems Status of ROS: Reports: 6 or more systems reviewed and unremarkable except as noted in History and below [facility] Social History Smoking Status: Current every day smoker What tobacco products do you use: cigarettes Do you use any of these nicotine containing products: None How often do you have a drink containing alcohol: never AUDIT-C Alcohol total score: 0 Non-prescribed substance use: denies use Exam Narrative: Exam Narrative: Pleasant. Appears uncomfortable. Heart in regular rate and rhythm. Breathing easily. Abdomen is soft. Pain to palpation in epigastrium A little uncomfortable palpation in the bilateral mid back musculature, maybe centrally as well. Extremities are well perfused without edema. Const: Vital Signs, click to edit/add: Vital Signs - 24 hr 08/16/24 08:40 Temperature 99.0 F Pulse Rate [Right Pulse Oximeter] 87 Respiratory Rate 18 Blood Pressure [Ri ght Upper Arm] 160/100 H Pulse Oximetry 100 Documenting provider has reviewed patient's vital signs: yes Course Vital Signs Vital signs: Initial Vital Signs Temperature 99.0 F 08/16/24 08:40 Temperature Source Temporal Artery Scan 08/16/24 08:40 Pulse Rate 87 08/16/24 08:40 Pulse Rhythm Regular 08/16/24 08:40 Pulse Strength 3+ Normal 08/16/24 08:40 Respiratory Rate 18 08/16/24 08:40 Blood Pressure 160/100 H 08/16/24 08:40 Blood Pressure Mean 120 H 08/16/24 08:40 Blood Pressure Position Sitting 08/16/24 08:40 Pulse Oximetry 100 08/16/24 08:40 Vital Signs Temperature 99.0 F 08/16/24 08:40 Pulse Rate 87 08/16/24 08:40 Respiratory Rate 18 08/16/24 08:40 Blood Pressure 160/100 H 08/16/24 08:40 Pulse Oximetry 100 08/16/24 08:40 Temperature 97.0 F L 08/16/24 10:52 Pulse Rate 60 08/16/24 10:52 Respiratory Rate 18 08/16/24 10:52 Blood Pressure 154/94 H 08/16/24 10:52 Pulse Oximetry 100 08/16/24 10:52 Oxygen Delivery Method Room Air 08/16/24 10:52 Medications Administered Medications: Discontinued Medications Generic Name Dose Route Start Last Admin Trade Name Dany PRN Reason Stop Dose Admin Sodium Chloride 1,000 mls @ 1,000 mls/hr 08/16/24 09:31 08/16/24 11:18 0.9 % Sodium Chloride 1000 Ml IV 08/16/24 10:30 Infused .Q1H ONE Infusion Ketorolac Tromethamine 30 mg 08/16/24 09:31 08/16/24 10:16 Ketorolac 30 Mg/Ml Inj IVP 08/16/24 09:32 30 mg ONCE ONE Administration Lidocaine/Aluminum/Magnesium/Simeth 30 ml 08/16/24 10:22 08/16/24 10:35 Gi Cocktail (Visc Lido/Antacid) 30 Ml PO 08/16/24 10:23 30 ml ONCE ONE Administration Ondansetron HCl 4 mg 08/16/24 10:21 08/16/24 10:33 Ondansetron 2 Mg/Ml Inj IVP 08/16/24 10:22 4 mg ONCE ONE Administration Medical Decision Making MDM Narrative Medical decision making narrative: Smoking increases risk of gastric cancer and esophageal problems. Does have a history of ulcers he reports. I think probably is epigastric pain is related to gastritis/ulcer. He has continued to take his omeprazole and taking antacids. Constipation certainly isn't helping abdominal discomfort I would think. I think is improving a little bit on what appear to be an epididymal orchitis diagnosis. Will image at this point but I think still needs this EGD. Requesting treatment for pain. Initiated on IV fluids partly as I think that he probably as not keeping up with fluids very well. Also ketorolac. Later with nausea given Zofran and then continued pain, a test of a GI cocktail. CT imaging independently reviewed by me shows some thickening of the stomach/duodenum. Uncertain significance and pending Radiology over-read. Labs essentially unchanged from prior Radiology over-read as below This does confirm it appearance of duodenitis. I think this is consistent with symptoms/history. On reassessment is improved in discomfort with treatment as above. INDICATION: Severe epigastric pain. Bilateral flank and mid back pain. TECHNIQUE: CT abdomen and pelvis acquired with 86 cc of Isovue 370 IV contrast. COMPARISON: 03/04/2020. FINDINGS: Lower chest: Mild bibasilar atelectasis. No pleural or pericardial effusions. Liver: Stable fatty change near the falciform ligament. Spleen: Unremarkable. Pancreas: Unremarkable. No CT evidence of pancreatitis. Gallbladder and bile ducts: No calcified stones or biliary ductal dilatation. Kidneys: No urolithiasis, hydronephrosis or suspicious lesion. Adrenal glands: Unremarkable. GI tract: New near diffuse circumferential thickening of the duodenum. No CT evidence of discrete gastrointestinal tract lesion. No bowel obstruction or focal inflammatory change elsewhere in the GI tract. Fecal loading of the colon. No free air or free fluid. Lymph nodes: No pathologic lymphadenopathy. Vascular structures: Unremarkable. Pelvic Organs: Circumferential enhancement of the urinary bladder. Bladder as imaged is otherwise unremarkable. Bones: No acute or suspicious osseous abnormality. IMPRESSION: 1. New circumferential thickening of the duodenum, concerning for duodenitis. Endoscopy correlation could be considered. 2. Circumferential bladder wall enhancement may reflect cystitis/urinary tract infection in the appropriate clinical setting. No hydronephrosis. 3. No CT evidence of acute pancreatitis. I did discuss this with General surgery to arrange for follow-up. As discussed on prior visit, needs EGD. Will try to make these arrangements. See patient discharge plan for further discussion I am prescribing a new prescription of your omeprazole. We will make this high dose briefly. Also the stomach coating medicine sucralfate as discussed. Can take liquid antacid/anti-gas like Mylanta for breakthrough discomfort. I am prescribing also some lidocaine that you can mix 1:1 with the liquid antacid/anti-gas. You might benefit from the addition of famotidine/Pepcid as well for now. This can be picked up [id number]. Try that MiraLax equivalent as well. Will need a gentle diet. If stool is particularly hard, might need to place an enema. Repeat in an hour if no good result. EGD scheduled for August 23 at 8:45AM at the [facility]. An Endo nurse will be calling on tuesday with instructions and any questions you may have. Lab Data Labs: Lab Results 08/16/24 08/16/24 08/16/24 Range/Units 09:40 09:48 10:22 Hgb 15.2 (13.5-17.5) gm/dL Sodium 135 (135-149) mmol/L Potassium 4.5 (3.6-5.1) mmol/L Chloride 102 (96-114) mmol/L Carbon Dioxide 28 (20-32) mmol/L Anion Gap 5 L (7-15) mEq/L BUN 12 (5-24) mg/dL Creatinine 0.8 (0.5-1.5) mg/dL Estimated Creat Clear 124.50 Estimated GFR 116 ml/min Glucose 98 (60-115) mg/dL Calcium 9.3 (8.4-10.6) mg/dL Total Bilirubin 0.3 (0.1-1.5) mg/dL Direct Bilirubin 0.2 (0.0-0.5) mg/dL AST 29 (12-35) U/L ALT 53 H (4-50) U/L Alkaline Phosphatase 52 (40-150) U/L Total Protein 6.6 (6.0-8.3) g/dL Albumin 4.3 (3.3-5.0) g/dL Lipase 35 (23-300) U/L Urine Color Yellow (Yellow) Urine Appearance Clear (Clear) Urine pH 6.0 (5.0-8.5) Ur Specific [place] >= 1.030 (1.000-1.030) Urine Protein Negative (Negative) Urine Glucose (UA) Negative (Negative) Urine Ketones Negative (Negative) Urine Blood Negative (Negative) Urine Nitrite Negative (Negative) Urine Bilirubin Negative (Negative) Urine Urobilinogen 0.2 (0.2-1.0) Ur Leukocyte Esterase Negative (Negative) Urine RBC 0-2 (0-2) Urine WBC 0-2 (0-5) Ur Squamous Epith Cells Few (None-Few) Urine Bacteria Few A (None) Urine Mucus Few A (None) Lab Acknowledgement Test Added Discharge Plan Discharge Clinical Impression: Duodenitis, Epididymo-orchitis, Back pain, Epigastric abdominal pain Patient Disposition: Home, Self-Care Condition: Improved Additional Instructions: I am prescribing a new prescription of your omeprazole. We will make this high dose briefly. Also the stomach coating medicine sucralfate as discussed. Can take liquid antacid/anti-gas like Mylanta for breakthrough discomfort. I am prescribing also some lidocaine that you can mix 1:1 with the liquid antacid/anti-gas. You might benefit from the addition of famotidine/Pepcid as well for now. This can be picked up [id number]. Try that MiraLax equivalent as well. Will need a gentle diet. If stool is particularly hard, might need to place an enema. Repeat in an hour if no good result. EGD scheduled for August 23 at 8:45AM at the [facility]. An Endo nurse will be calling on tuesday with instructions and any questions you may have. Prescriptions: New sucralfate 1 gram tablet 1 g PO BID Qty: 60 2RF omeprazole 40 mg capsule,delayed release(DR/EC) 40 mg PO BID Qty: 60 2RF lidocaine HCl 2 % solution 10 - 15 ml PO Q8H PRNQty: 100 0RF Rx Instructions: mix with mylanta equivalent No Action alprazolam 1 mg tablet 1 mg PO DAILY PRN dextroamphetamine-amphetamine 10 mg tablet 1 tab PO DAILY PRN omeprazole 40 mg capsule,delayed release(DR/EC) DAILY dextroamphetamine-amphetamine 30 mg tablet 1 tab PO QAM sulfamethoxazole-trimethoprim [Bactrim DS] 800-160 mg tablet 1 tab PO BID Qty: 24 0RF Follow Up/Referrals: Provider,Not a Local [Primary Care Provider] - Stand Alone Forms: [employer] Info Instructions
--- NOTE | 2024-08-16 09:31 | CRLHL7_ITS ---
For Patients: As a result of the Cures Act, medical imaging exams and procedure reports are released immediately into your electronic medical record. You may view this report before your referring provider. If you have questions, please contact your health care provider. INDICATION: Severe epigastric pain. Bilateral flank and mid back pain. TECHNIQUE: CT abdomen and pelvis acquired with 86 cc of Isovue 370 IV contrast. COMPARISON: 03/04/2020. FINDINGS: Lower chest: Mild bibasilar atelectasis. No pleural or pericardial effusions. Liver: Stable fatty change near the falciform ligament. Spleen: Unremarkable. Pancreas: Unremarkable. No CT evidence of pancreatitis. Gallbladder and bile ducts: No calcified stones or biliary ductal dilatation. Kidneys: No urolithiasis, hydronephrosis or suspicious lesion. Adrenal glands: Unremarkable. GI tract: New near diffuse circumferential thickening of the duodenum. No CT evidence of discrete gastrointestinal tract lesion. No bowel obstruction or focal inflammatory change elsewhere in the GI tract. Fecal loading of the colon. No free air or free fluid. Lymph nodes: No pathologic lymphadenopathy. Vascular structures: Unremarkable. Pelvic Organs: Circumferential enhancement of the urinary bladder. Bladder as imaged is otherwise unremarkable. Bones: No acute or suspicious osseous abnormality. IMPRESSION: 1. New circumferential thickening of the duodenum, concerning for duodenitis. Endoscopy correlation could be considered. 2. Circumferential bladder wall enhancement may reflect cystitis/urinary tract infection in the appropriate clinical setting. No hydronephrosis. 3. No CT evidence of acute pancreatitis. Dictated by Osmel Graves MD @ 08/16/2024 10:19:41 AM Please note that all CT scans at this facility use dose modulation, iterative reconstruction, and/or weight-based dosing when appropriate to reduce radiation dose to as low as reasonably achievable. Dictated by: Osmel Graves MD @ 08/16/2024 10:20:54 (Electronically Signed)
[2024-08-16 09:46] LABS: Appearance Urine Clear (Clear); Bilirubin Urine Negative (Negative); Blood Urine Negative (Negative); Color Urine Yellow (Yellow); Glucose Urine Negative (Negative); Ketones Urine Negative (Negative); Leukocyte Esterase Urine Negative (Negative); Nitrite Urine Negative (Negative); Protein Urine Negative (Negative); Specific Gravity Urine >= 1.030 (1.000-1.030); Urobilinogen Urine 0.2 (0.2-1.0)
[2024-08-16 09:58] LABS: RBC Urine 0-2 (0-2); Squamous Epithelial Cell Urine Few (None-Few); WBC Urine 0-2 (0-5)
[2024-08-16 09:59] LABS: Bacteria Urine Few; Mucus Urine Few
[2024-08-16 10:04] LABS: Hemoglobin* 15.2 gm/dL (13.5-17.5)
[2024-08-16] MEDS: KETOROLAC 30 MG/ML inj IVP (10:16)
[2024-08-16] MEDS: 0.9 % SODIUM CHLORIDE 1000 ml 1,000 ML IV (10:16)
[2024-08-16 10:17] LABS: Albumin* 4.3 g/dL (3.3-5.0); Chloride* 102 mmol/L (96-114); Sodium* 135 mmol/L (135-149)
[2024-08-16 10:18] LABS: Potassium* 4.5 mmol/L (3.6-5.1)
[2024-08-16 10:20] LABS: Alkaline Phosphatase* 52 U/L (40-150); Anion Gap 5 mEq/L (7-15); Aspartate Amino Transferase* 29 U/L (12-35); Bilirubin Direct* 0.2 mg/dL (0.0-0.5); Bilirubin Total* 0.3 mg/dL (0.1-1.5); Blood Urea Nitrogen* 12 mg/dL (5-24); Carbon Dioxide* 28 mmol/L (20-32); Creatinine* 0.8 mg/dL (0.5-1.5); Estimated Glomerular Filt Rate 116 ml/min; Glucose* 98 mg/dL (60-115); Total Protein* 6.6 g/dL (6.0-8.3)
[2024-08-16 10:21] LABS: Alanine Aminotransferase* 53 U/L (4-50); Calcium* 9.3 mg/dL (8.4-10.6)
[2024-08-16] MEDS: ONDANSETRON 2 MG/ML inj 4 MG IVP (10:33)
[2024-08-16] MEDS: GI COCKTAIL (VISC LIDO/ANTACID) 30 ML PO (10:35)
[2024-08-16 10:52] VITALS: BP 154/94; PULSE 60; RESP 18; TEMP 36.1; O2SAT 100
[2024-08-16 10:59] LABS: Lipase* 35 U/L (23-300)
== END 2024-08-16 12:15 | disposition home or self-care (01) ==
PROVIDERS: Emergency Provider Family Medicine
DX: K29.80 Duodenitis without bleeding (principal); N45.3 Epididymo-orchitis; R10.13 Epigastric pain
CPT/HCPCS: 36415; 74177; 80048; 80076; 81001; 83690; 85018; 87086; 96374; 96375; 99284; A9270; J1885; J2405; J7030; Q9967

== ENCOUNTER 2024-08-23 09:01 | Outpatient (CLI) | payer BC, OTHER, SELFPAY ==
--- NOTE | 2024-08-23 10:44 | W.ANESCHARGE ---
Anesthesia Charges Start Date/Time Anesthesia Start Date: 08/23/24 Anesthesia Start Time: 10:27 Stop Date/Time Anesthesia Stop Date: 08/23/24 Anesthesia Stop Time: 10:43 Coding CPT Codes CPT Codes: ANES UPR GI NDSC PX NOS - 68130 ([id number]) P1 - NORMAL HEALTHY PATIENT, QX - EMBEDDED SYSTEMS DESIGNER SHARON W/ MED DIRECTION, QK - FASHION DESIGN PROFESSOR 2-4 CNCRNT ANES PROC
--- NOTE | 2024-08-23 10:45 | W.ANESCHARGE ---
Anesthesia Charges Start Date/Time Anesthesia Start Date: 08/23/24 Anesthesia Start Time: 10:27 Stop Date/Time Anesthesia Stop Date: 08/23/24 Anesthesia Stop Time: 10:43 Coding CPT Codes CPT Codes: ANES UPR GI NDSC PX NOS - 40565 ([id number]) P1 - NORMAL HEALTHY PATIENT, QK - HOUSEFELLOW 2-4 CNCRNT ANES PROC, QX - VENUE COORDINATOR SVBam W/ MED DIRECTION
== END 2024-08-23 09:02 | disposition home or self-care (01) ==
LOC: OP CLINIC 09:02
PROVIDERS: Visit Provider Surgery
DX: R10.13 Epigastric pain (principal); K31.89 Other diseases of stomach and duodenum; R93.3 Abnormal findings on diagnostic imaging of other parts of digestive tract
CPT/HCPCS: 00731; 43239; 88305; J2704; J3010

== ENCOUNTER 2024-08-29 20:27 | Emergency (ER) | payer BC, SELFPAY ==
--- OUTSIDE RECORDS SUMMARY | 2024-08-29 20:29 | XMS_ITS | Clinical Summary ---
Author Organization [facility] Address [address] [place] [address] Care Team Providers Care Country Manager Name Role Phone No Ref-Primary, Physician [...] - 145 mmol/L 05/04/2024 5:07 AM CDT [facility] Potassium 3.9 3.4 - 5.3 mmol/L 05/04/2024 5:07 AM [facility] Carbon Dioxide (CO2) 26 22 - 29 mmol/L 05/04/2024 5:07 AM [facility] Anion Gap 10 7 - 15 mmol/L 05/04/2024 5:07 AM [facility] Urea Nitrogen 11.1 6.0 - 20.0 mg/dL 05/04/2024 5:07 AM [facility] Creatinine 0.78 0.67 - 1.17 mg/dL 05/04/2024 5:07 AM [facility] GFR Estimate >90 >60 mL/min/1.7 3m2 05/04/2024 5:07 AM [facility] Comment:eGFR calculated usin 2020 CKD-EPI equation. Calcium 8.7(L) 8.8 - 10.4 mg/dL 05/04/2024 5:07 AM [facility] Comment:Reference intervals for this test were updated on 02/07/2024 to reflect our healthy population more accurately. There may be differences in the flagging of prior results with similar values performed with this method. Those prior results can be interpreted in the context of the updated reference intervals. Chloride 101 98 - 107 mmol/L 05/04/2024 5:07 AM [facility] Glucose 126(H) 70 - 99 mg/dL 05/04/2024 5:07 AM [facility] Alkaline Phosphatase 51 40 - 150 U/L 05/04/2024 5:07 AM [facility] AST 25 0 - 45 U/L 05/04/2024 5:07 AM [facility] ALT 27 0 - 70 U/L 05/04/2024 5:07 AM [facility] Protein Total 6.2(L) 6.4 - 8.3 g/dL 05/04/2024 5:07 AM [facility] Albumin 4.1 3.5 - 5.2 g/dL 05/04/2024 5:07 AM [facility] Bilirubin Total <0.2 <=1.2 mg/dL 05/04/2024 5:07 AM [facility] Blood VENOUS LINE / Unknown Venipuncture / Unknown 05/04/2024 4:44 AM CDT 05/04/2024 4:48 AM CDT us Per Schmitt MD LAB - BLOOD ORDERABLES Final Res ult [facility] [address] [place] [address], [facility] from Last 3 Months or Most Recently Relevant to Health Maintenance Insurance [employer] Care Teams Country Manager Relationship Specialty Start Date End Date No Ref-Primary, Physician PCP - General 02/24/18
--- OUTSIDE RECORDS SUMMARY | 2024-08-29 20:29 | XMS_ITS | Clinical Summary ---
Author Organization [employer] [facility] Address [place], [place] [address] Care Team Providers Care Bearing Maker Name Role Phone Clinic, No Pcp Or [...] 2 Son 1 Kydon Alive Son 2 [facility] Al[facility] Social History Tobacco Use Types Packs/Day [...] Comments Blood Pressure 111/68 07/21/2022 2:05 AM STORE GROUP MANAGER Pulse 59 07/21/2022 2:05 AM STORE GROUP MANAGER Temperature 36.8 C (98.2 F) 07/21/2022 2:05 AM STORE GROUP MANAGER Respiratory Rate 16 07/21/2022 2:05 AM STORE GROUP MANAGER Oxygen Saturation 97% 07/21/2022 2:05 AM STORE GROUP MANAGER Inhaled Oxygen Concentration - - Weight 73 kg (161 lb) 07/20/2022 8:55 PM STORE GROUP MANAGER Height 175.3 cm (5' 9) 07/20/2022 8:55 PM STORE GROUP MANAGER Body Mass Index 23.78 07/20/2022 8:55 PM STORE GROUP MANAGER Plan of Treatment Health Maintenance Due Date [...] Karishma Sagastume MD Insurance MEDICAID Care Teams Bearing Maker Relationship Specialty Start Date End Date Clinic, No Pcp Or . PCP - General 10/15/15
--- OUTSIDE RECORDS SUMMARY | 2024-08-29 20:29 | XMS_ITS | Continuity of Care Document ---
Author Organization [facility] Address [address] [address] [place] [address] Phone Care Team Providers Care Mammal Control Agent Name Role Phone No Information Unavailable Unavailable Advance Directives Directive Yes / No Effective Date File Name No Information Encounters Encounter Description Practice Location Reason(s) For Visit Diagnoses Date Provider Providers Copied on Encounter [facility], [address] [address], [place], [place], [id number], tel:[phone] No Information No Information Referring Provider: Julita Faria [employer], [address] [place], [address]. tel:[phone] Family History Family Member Type Diagnosis Age [...]
--- OUTSIDE RECORDS SUMMARY | 2024-08-29 20:29 | XMS_ITS | Clinical Summary ---
Author Organization [facility] Address [address], [place] [address] Care Team Providers Care Wound/Ostomy Nurse Name Role Phone No Primary/Referring, Phy Primary Care Provider Unavailable Source Comments You are receiving this document as you are listed as the primary care provider,follow-up provider, or the patient has been referred to you for consultation.This is in compliance with the Medicare andOhio[facility] Cent[facility]aid EHR Incentive Program,which states Providers who transition their patient to another setting of careor provider of care or refers their patient to another provider of care shouldprovide summary care record for each transition of care or referral. [employer] Allergies No known active allergies Medications Medication [...] Comments Blood Pressure 134/85 07/22/2022 1:28 PM RESTAURANT ATTENDANT Pulse 67 07/22/2022 2:02 PM RESTAURANT ATTENDANT Temperature 36.7 C (98 F) 07/22/2022 1:28 PM RESTAURANT ATTENDANT Respiratory Rate 18 07/22/2022 1:28 PM RESTAURANT ATTENDANT Oxygen Saturation 98% 07/22/2022 1:28 PM RESTAURANT ATTENDANT Inhaled Oxygen Concentration - - Weight 72.6 kg (160 lb) 07/21/2022 3:00 AM RESTAURANT ATTENDANT Height 175.3 cm (5' 9) 07/21/2022 3:00 AM RESTAURANT ATTENDANT Body Mass Index 23.63 07/21/2022 3:00 AM RESTAURANT ATTENDANT Plan of Treatment Health Maintenance Due Date [...] AG/AB 4TH GEN STAT 07/21/2022 5:00 AM RESTAURANT ATTENDANT HEPATITIS PANEL ACUTE WITH REFLEX TO CONFIRMATION STAT 07/21/2022 5:00 AM RESTAURANT ATTENDANT from Last 3 Months or Most Recently Relevant to Health Maintenance Results * Hepatitis Panel with Reflex to Confirmation (07/21/2022 5:00 AM RESTAURANT ATTENDANT) Hepatitis A Antibody, IgM Negative (Non Reactive) Negative (Non Reactive) 07/21/2022 11:31 AM [facility] Comment:IgM anti-HAV not det ected. Does not exclude the possibility of exposure to or infection with HAV. Levels of IgM anti-HAV may be below the cut-off in early infection. Hepatitis Bc Antibody,IgM Negative (Non Reactive) Negative (Non-Reacti ve) 07/21/2022 11:31 AM RESTAURANT ATTENDANT [facility] Comment:IgM anti-HBc not det ected. Does not exclude the possibility of exposure to or infection with HBV. Hepatitis B Surface Antigen Negative (Non Reactive) Negative (Non Reactive) 07/21/2022 11:31 AM RESTAURANT ATTENDANT [facility] Hepatitis C Antibody Negative (Non Reactive) Negative (Non Reactive) 07/21/2022 11:31 AM RESTAURANT ATTENDANT [facility] Comment:Antibodies to HCV no t detected. Does not exclude the possiblity of exposure to HCV. Blood Venipuncture / Unknown 07/21/2022 5:00 AM RESTAURANT ATTENDANT 07/21/2022 5:03 AM RESTAURANT ATTENDANT Earle Garnica MD LAB_1 [facility] [address] [phone] * HIV 1/2 Ag/Ab 4th Generation (07/21/2022 5:00 AM RESTAURANT ATTENDANT) HIV 1/2 Antigen/Antib arie (4th generation) Negative (Non Reactive) Negative (Non Reactive) 07/21/2022 5:47 AM RESTAURANT ATTENDANT [facility] Comment:HIV-1 p24 Antigen an d HIV-1/HIV-2 Antibody not detected Blood Venipuncture / Unknown 07/21/2022 5:00 AM RESTAURANT ATTENDANT 07/21/2022 5:03 AM RESTAURANT ATTENDANT Earle Garnica MD LAB_1 [place] [address], [facility] [phone] from Last 3 Months or Most Recently Relevant to Health Maintenance Advance Directives * Full Code (Latest Code Status on File) Date Activated Date Inactivated Comments 07/21/2022 4:02 AM 07/22/2022 7:00 PM Care Teams Wound/Ostomy Nurse Relationship Specialty Start Date End Date No Primary/Referring, Phy PCP - General 07/21/22
--- OUTSIDE RECORDS SUMMARY | 2024-08-29 20:29 | XMS_ITS | Patient Health Summary ---
Author Organization [facility] Address [address] [place] [address] Care Team Providers Care Continuous Process Tanner Rotary Drum Name Role Phone Unavailable Primary Care Provider Unavailabl e Note from [facility],non-owned Affiliates and Associated Physician Practices is amultiple site organization consisting of ambulatory clinics and hospital sitesin [place], [place], [place] and [place]. This disclosure is being madepursuant to the Care Everywhere program and may not contain all information available regarding this patient. Last updated 18.[facility] Allergies No known active allergies Medications * [...] IMPRESSION No active disease. Reading Radiologist: Gallo Wyatt MD on 02/14/2019 at 11:22 AM [facility] O RDERABLES * EKG 12-LEAD (02/14/2019 9:21 AM CDT) Pathologist [facility] Ventricular Rate 57 BPM [facility] Atrial Rate 57 BPM [facility] P-R Interval 120 ms [facility] QRS Duration ms 92 ms [facility] Q-T Interval ms 406 ms [facility] QTC Calculation (Bezet) 395 ms [facility] Calculated P [place] 54 degrees [facility] Calculated R [place] 74 degrees [facility] Calculated T [place] 60 degrees [facility] Interpretation EKG Sinus bradycardia Otherwise normal ECG No previous ECGs available Confirmed by PAULO NI MD ([id number]) on 02/15/2019 2:13:18 PM [facility] 02/14/2019 9:21 AM CDT 02/15/2019 2:13 PM CDT James Esquivel DO ECG ORDERABLES [facility] * (ABNORMAL) CBC W AUTO DIFFERENTIAL (02/14/2019 9:17 AM CDT) Pathologist [facility] WBC 6.3 4.4 - 10.7 x10E9/L 02/14/2019 9:31 AM CDT [facility] WBC Corrected x10E9/L 02/14/2019 9:31 AM CDT [facility] RBC 4.92 3.80 - 5.40 x10E12/L 02/14/2019 9:31 AM CDT [facility] Hemoglobin 16.9 12.0 - 17.6 gm/dL 02/14/2019 9:31 AM CDT [facility] Hematocrit 47.0 35.2 - 51.7 % 02/14/2019 9:31 AM CDT [facility] MCV 95.5 80.7 - 98.3 fl 02/14/2019 9:31 AM CDT [facility] MCH 34.3(H) 26.7 - 34.0 pg 02/14/2019 9:31 AM CDT [facility] MCHC 36.0(H) 30.8 - 35.9 gm/dL 02/14/2019 9:31 AM CDT [facility] Platelet Count 261 153 - 416 x10E9/L 02/14/2019 9:31 AM CDT [facility] RDW-CV 12.2 12.1 - 14.9 % 02/14/2019 9:31 AM CDT [facility] MPV 9.3(L) 9.4 - 12.9 fl 02/14/2019 9:31 AM CDT [facility] Neutrophils % 56.0 44.0 - 73.0 % 02/14/2019 9:31 AM CDT [facility] Lymphocytes % 33.8 20.0 - 43.0 % 02/14/2019 9:31 AM CDT [facility] Monocytes % 8.5 5.0 - 13.0 % 02/14/2019 9:31 AM CDT [facility] Eosinophils % 1.1 0.0 - 6.0 % 02/14/2019 9:31 AM CDT [facility] Basophils % 0.3 0.0 - 2.0 % 02/14/2019 9:31 AM CDT [facility] Immature Granulocytes 0.3 0 - 1 % 02/14/2019 9:31 AM CDT [facility] Neutrophil Absolute 3.51 2.01 - 7.14 x10E9/L 02/14/2019 9:31 AM CDT [facility] Lymphocytes Absolute 2.12 1.07 - 3.94 x10E9/L 02/14/2019 9:31 AM CDT [facility] Monocytes Absolute 0.53 0.26 - 1.07 x10E9/L 02/14/2019 9:31 AM CDT [facility] Eosinophils Absolute 0.07 0 - 0.47 x10E9/L 02/14/2019 9:31 AM CDT [facility] Basophils Absolute 0.02 0 - 0.08 x10E9/L 02/14/2019 9:31 AM CDT [facility] Immature Granulocytes Absolute 0.02 0.00 - 0.06 x10E9/L 02/14/2019 9:31 AM CDT [facility] nRBC Auto 0 /100 WBC 02/14/2019 9:31 AM CDT [facility] Blood BLOOD SPECIMEN / Unknown Venipuncture / Unknown 02/14/2019 9:17 AM CDT 02/14/2019 9:22 AM CDT James Esquivel DO LAB - HEMATOLOGY ORD ERABLES [facility] [address] [place] [address] * (ABNORMAL) COMPREHENSIVE METABOLIC PANEL (02/14/2019 9:17 AM CDT) Glucose 86 74 - 106 mg/dL 02/14/2019 9:40 AM CDT [facility] Sodium 140 136 - 145 mmol/L 02/14/2019 9:40 AM CDT [facility] Potassium 4.0 3.5 - 5.1 mmol/L 02/14/2019 9:40 AM CDT [facility] Chloride 101 98 - 107 mmol/L 02/14/2019 9:40 AM CDT [facility] CO2 28 23 - 31 mmol/L 02/14/2019 9:40 AM CDT [facility] Calcium 9.5 8.4 - 10.2 mg/dL 02/14/2019 9:40 AM CDT [facility] Anion Gap 11 8 - 16 mmol/L 02/14/2019 9:40 AM CDT [facility] BUN 9 8.9 - 20.6 mg/dL 02/14/2019 9:40 AM CDT [facility] Creatinine 0.92 0.73 - 1.18 mg/dL 02/14/2019 9:40 AM CDT [facility] Alkaline Phosphatase 66 40 - 150 U/L 02/14/2019 9:40 AM CDT [facility] ALT 108(H) 13 - 61 U/L 02/14/2019 9:40 AM CDT [facility] AST 86(H) 5 - 34 U/L 02/14/2019 9:40 AM CDT [facility] Protein Total 7.4 6.4 - 8.3 gm/dL 02/14/2019 9:40 AM CDT [facility] Albumin 4.7 3.5 - 5.2 gm/dL 02/14/2019 9:40 AM CDT [facility] Bilirubin Total 0.5 0.2 - 1.2 mg/dL 02/14/2019 9:40 AM CDT [facility] eGFR by MDRD >60 >60 mL/min/1.7 3m2 02/14/2019 9:40 AM CDT [facility] eGFR by MDRD >60 >60 mL/min/1.7 3m2 02/14/2019 9:40 AM CDT [facility] Blood BLOOD SPECIMEN / Unknown Venipuncture / Unknown 02/14/2019 9:17 AM CDT 02/14/2019 9:22 AM CDT James Esquivel DO LAB - CHEMISTRY ORDEmilia [facility] [address] [address] * LIPASE BLOOD (02/14/2019 9:17 AM CDT) Lipase 12 8 - 78 U/L 02/14/2019 11:18 AM CDT [facility] Blood BLOOD SPECIMEN / Unknown Venipuncture / Unknown 02/14/2019 9:17 AM CDT 02/14/2019 9:22 AM CDT Cleve Trevino PA-C LAB - CHEMISTRY ORDEmilia [facility]ANG[facility]A [facility] [address] [address]
--- OUTSIDE RECORDS SUMMARY | 2024-08-29 20:29 | XMS_ITS | Referral Summary ---
Author Organization [facility] Address [address] [place] [address] Care Team Providers Care Firer Electric Locomotive Name Role Phone Unavailable Primary Care Provider Unavailabl e Source Comments [facility] [email or web address],non-owned Affiliates and Associated Physician Practices is amultiple site organization consisting of ambulatory clinics and hospital sitesin [place], [place], [place] and [place]. This disclosure is being madepursuant to the Care Everywhere program and may not contain all information available regarding this patient. Last updated 18.[facility] [email or web address] Allergies No known active allergies Medications * [...]
--- OUTSIDE RECORDS SUMMARY | 2024-08-29 20:29 | XMS_ITS | Clinical Summary ---
Author Organization [facility] Address [address] [place] [address] Care Team Providers Care Hazardous Waste Technician Name Role Phone Unavailable Primary Care Provider Unavailabl e Source Comments [facility],non-owned Affiliates and Associated Physician Practices is amultiple site organization consisting of ambulatory clinics and hospital sitesin [place], [place], [place] and [place]. This disclosure is being madepursuant to the Care Everywhere program and may not contain all information available regarding this patient. Last updated 18.[facility] Allergies No known active allergies Medications * [...]
--- OUTSIDE RECORDS SUMMARY | 2024-08-29 20:29 | XMS_ITS | Referral Summary ---
Author Organization [facility] Address [address] [place] [address] Care Team Providers Care Bullet Assembly Press Setter Operator Name Role Phone No Ref-Primary, Physician Primary [...] 135 - 145 mmol/L 05/04/2024 5:07 AM [facility] Potassium 3.9 3.4 - 5.3 mmol/L 05/04/2024 5:07 AM [facility] Carbon Dioxide (CO2) 26 22 - 29 mmol/L 05/04/2024 5:07 AM [facility] Anion Gap 10 7 - 15 mmol/L 05/04/2024 5:07 AM [facility] Urea Nitrogen 11.1 6.0 - 20.0 mg/dL 05/04/2024 5:07 AM [facility] Creatinine 0.78 0.67 - 1.17 mg/dL 05/04/2024 5:07 AM [facility] GFR Estimate >90 >60 mL/min/1.7 3m2 05/04/2024 5:07 AM [facility] Comment:eGFR calculated usin 2020 CKD-EPI equation. Calcium 8.7(L) 8.8 - 10.4 mg/dL 05/04/2024 5:07 AM [facility] Comment:Reference intervals for this test were updated on 02/07/2024 to reflect our healthy population more accurately. There may be differences in the flagging of prior results with similar values performed with this method. Those prior results can be interpreted in the context of the updated reference intervals. Chloride 101 98 - 107 mmol/L 05/04/2024 5:07 AM CDT [facility] Glucose 126(H) 70 - 99 mg/dL 05/04/2024 5:07 AM CDT [facility] Alkaline Phosphatase 51 40 - 150 U/L 05/04/2024 5:07 AM CDT [facility] AST 25 0 - 45 U/L 05/04/2024 5:07 AM CDT [facility] ALT 27 0 - 70 U/L 05/04/2024 5:07 AM CDT [facility] Protein Total 6.2(L) 6.4 - 8.3 g/dL 05/04/2024 5:07 AM CDT [facility] Albumin 4.1 3.5 - 5.2 g/dL 05/04/2024 5:07 AM CDT [facility] Bilirubin Total <0.2 <=1.2 mg/dL 05/04/2024 5:07 AM [facility] Blood VENOUS LINE / Unknown Venipuncture / Unknown 05/04/2024 4:44 AM CDT 05/04/2024 4:48 AM CDT us Per Schmitt MD LAB - BLOOD ORDERABLES Final Res ult [facility] [address] [place] [address] from Last 3 Months or Most Recently Relevant to Health Maintenance Insurance [employer] Care Teams Bullet Assembly Press Setter Operator Relationship Specialty Start Date End Date No Ref-Primary, Physician PCP - General 02/24/18
[2024-08-29 20:32] VITALS: BP 160/95; PULSE 94; RESP 18; TEMP 36.4; O2SAT 98; BMI 22.9
--- NOTE | 2024-08-29 22:03 | ED.GENADULT ---
HPI - General Adult General Chief complaint: Abdominal Pain Stated complaint: Pain in upper middle abdomen Time Seen by Provider: 08/29/24 21:29 History of Present Illness HPI narrative: A lot of pain in upper stomach on/off all day today on/off x 1 year Upper GI imaging set for tomorrow Been in a lot and have had all the tests Diarrhea/nausea Seen in clinic today-referred to GI Took tramodol?not helping 39-year-old man presenting to emergency department with upper abdominal pain. Has flared again over the last couple of days. This also coincides with diarrhea and some vomiting over the last couple of days. Vomited last in waiting area just before entering the emergency department. Has not noticed any blood/hematemesis. He has however noticed some hematochezia upon wiping. Has had probably 5 episodes of diarrhea today. Terrible cramping escalated today. Does have a about a year long struggle with pains in the upper abdomen. Following findings on CT imaging that appear to show a duodenitis, last week had an upper endoscopy which showed erosive gastropathy but it does not sound as though it was severe. He is also scheduled for another GI procedure tomorrow Describes being doubled up in pain earlier. Has been taking lots of Mylanta which helps minimally. Reviewing records I see that GI cocktail was helpful prior Related Data Home Medications ?Medication ?Instructions ?Recorded ?Confirmed alprazolam 1 mg tablet 1 mg PO DAILY PRN 08/13/24 08/29/24 dextroamphetamine-amphetamine 10 1 tab PO DAILY PRN 08/13/24 08/29/24 mg tablet dextroamphetamine-amphetamine 30 1 tab PO QAM 08/13/24 08/29/24 mg tablet Previous Rx's ?Medication ?Instructions ?Recorded omeprazole 40 mg capsule,delayed 40 mg PO BID #60 caps 08/16/24 release sucralfate 1 gram tablet 1 g PO BID #60 tabs 08/16/24 tramadol 50 mg tablet 50 mg PO TID PRN pain #10 tabs 08/29/24 Allergies Allergy/AdvReac Type Severity Reaction Status Date / Time No Known Drug Allergies Allergy Verified 08/29/24 20:38 Review of Systems Status of ROS: Reports: 6 or more systems reviewed and unremarkable except as noted in History and below PFSH PFSH Social History Smoking Status: Current every day smoker What tobacco products do you use: cigarettes Do you use any of these nicotine containing products: None How often do you have a drink containing alcohol: never AUDIT-C Alcohol total score: 0 Non-prescribed substance use: denies use Exam Narrative: Exam Narrative: Has fallen asleep. Appears generally annoyed, uncomfortable. Breathing easily. Clear lungs. White powder at the left nostril. Heart in regular rate and rhythm at the time of my auscultation. No rub or gallop. Abdomen with present bowel sounds is tender in the epigastrium again. Is well-perfused peripherally. Const: Vital Signs, click to edit/add: Vital Signs - 24 hr 08/29/24 20:32 08/29/24 23:21 08/29/24 23:30 Temperature 97.5 F L Pulse Rate 72 73 Pulse Rate [Pulse Oximeter] 94 Respiratory Rate 18 Blood Pressure [Ri ght Upper Arm] 160/95 H Pulse Oximetry 98 97 97 Oxygen Delivery Me thod Room Air 08/29/24 23:45 Temperature Pulse Rate 73 Pulse Rate [Pulse Oximeter] Respiratory Rate Blood Pressure [Ri ght Upper Arm] Pulse Oximetry 96 Oxygen Delivery Me thod Documenting provider has reviewed patient's vital signs: yes Course Vital Signs Vital signs: Initial Vital Signs Temperature 97.5 F L 08/29/24 20:32 Temperature Source Temporal Artery Scan 08/29/24 20:32 Pulse Rate 94 08/29/24 20:32 Pulse Rhythm Regular 08/29/24 20:32 Respiratory Rate 18 08/29/24 20:32 Blood Pressure 160/95 H 08/29/24 20:32 Blood Pressure Mean 116 H 08/29/24 20:32 Blood Pressure Position Sitting 08/29/24 20:32 Pulse Oximetry 98 08/29/24 20:32 Oxygen Delivery Method Room Air 08/29/24 20:32 Vital Signs Temperature 97.5 F L 08/29/24 20:32 Pulse Rate 94 08/29/24 20:32 Respiratory Rate 18 08/29/24 20:32 Blood Pressure 160/95 H 08/29/24 20:32 Pulse Oximetry 98 08/29/24 20:32 Oxygen Delivery Method Room Air 08/29/24 20:32 Temperature 97.5 F L 08/29/24 20:32 Pulse Rate 73 08/29/24 23:45 Respiratory Rate 18 08/29/24 20:32 Blood Pressure 160/95 H 08/29/24 20:32 Pulse Oximetry 96 08/29/24 23:45 Oxygen Delivery Method Room Air 08/29/24 20:32 Medications Administered Medications: Discontinued Medications Generic Name Dose Route Start Last Admin Trade Name Joseq PRN Reason Stop Dose Admin Sodium Chloride 1,000 mls @ 1,000 mls/hr 08/29/24 22:33 08/29/24 23:52 0.9 % Sodium Chloride 1000 Ml IV 08/29/24 23:32 Infused .Q1H ONE Infusion Ketorolac Tromethamine 30 mg 08/29/24 22:33 08/29/24 22:59 Ketorolac 30 Mg/Ml Inj IVP 08/29/24 22:34 30 mg ONCE ONE Administration Lidocaine/Aluminum/Magnesium/Simeth 30 ml 08/29/24 22:38 08/29/24 22:56 Gi Cocktail (Visc Lido/Antacid) 30 Ml PO 08/29/24 22:39 30 ml ONCE ONE Administration Ondansetron HCl 4 mg 08/29/24 22:33 08/29/24 22:58 Ondansetron 2 Mg/Ml Inj IVP 08/29/24 22:34 4 mg ONCE ONE Administration Medical Decision Making MDM Narrative Medical decision making narrative: This appears to be a flare of similar pain to what has been occurring prior. That being perhaps exacerbations of erosive gastropathy/duodenitis. I think will focus on symptomatic treatment absent abnormal vitals or fever. He has though had symptoms of diarrhea and vomiting complicating underlying epigastric pain. Is due for another GI study tomorrow. He would appreciate an IV. Will give this and ketorolac and Zofran as he is still nauseated. Also GI cocktail. Able to sleep again with treatments as above. Wakes feeling improved the with I think still some discomfort. Otherwise feels well and I think safe for discharge. See patient discharge plan for further discussion I am sorry you keep going through this. I hope there are some answers for you tomorrow. Prescribing Zofran for nausea from [facility] if you need. Otherwise could take loperamide for diarrhea if needed. Medical Records Medical records reviewed: Yes I reviewed the patient's medical records Discharge Plan Discharge Clinical Impression: Epigastric abdominal pain, Erosive gastropathy, Vomiting, Diarrhea Patient Disposition: Home, Self-Care Condition: Improved Additional Instructions: I am sorry you keep going through this. I hope there are some answers for you tomorrow. Prescribing Zofran for nausea from [facility] if you need. Otherwise could take loperamide for diarrhea if needed. Prescriptions: No Action tramadol 50 mg tablet 50 mg PO TID PRN (Reason: pain) Qty: 10 0RF alprazolam 1 mg tablet 1 mg PO DAILY PRN dextroamphetamine-amphetamine 10 mg tablet 1 tab PO DAILY PRN dextroamphetamine-amphetamine 30 mg tablet 1 tab PO QAM sucralfate 1 gram tablet 1 g PO BID Qty: 60 2RF omeprazole 40 mg capsule,delayed release(DR/EC) 40 mg PO BID Qty: 60 2RF Follow Up/Referrals: Provider,Not a Local [Primary Care Provider] - Stand Alone Forms: Luminescent Info Instructions
--- OUTSIDE RECORDS SUMMARY | 2024-08-29 22:42 | XMS_ITS | Referral Summary ---
Author Organization [facility] Address [address] [place] [address] Care Team Providers Care Manager Med Surg Name Role Phone Unavailable Primary Care Provider Unavailabl e Source Comments [facility],non-owned Affiliates and Associated Physician Practices is amultiple site organization consisting of ambulatory clinics and hospital sitesin [place], [place], [place] and [place]. This disclosure is being madepursuant to the Care Everywhere program and may not contain all information available regarding this patient. Last updated 18.[facility] Allergies No known active allergies Medications * [...]
--- OUTSIDE RECORDS SUMMARY | 2024-08-29 22:42 | XMS_ITS | Referral Summary ---
Author Organization [facility] Address [address] [place] [address] Care Team Providers Care Busperson Name Role Phone No Ref-Primary, Physician Primary [...] 135 - 145 mmol/L 05/04/2024 5:07 AM [facility] Potassium 3.9 3.4 - 5.3 mmol/L 05/04/2024 5:07 AM [facility] Carbon Dioxide (CO2) 26 22 - 29 mmol/L 05/04/2024 5:07 AM [facility] Anion Gap 10 7 - 15 mmol/L 05/04/2024 5:07 AM [facility] Urea Nitrogen 11.1 6.0 - 20.0 mg/dL 05/04/2024 5:07 AM [facility] Creatinine 0.78 0.67 - 1.17 mg/dL 05/04/2024 5:07 AM [facility] GFR Estimate >90 >60 mL/min/1.7 3m2 05/04/2024 5:07 AM [facility] Comment:eGFR calculated usin 2020 CKD-EPI equation. Calcium 8.7(L) 8.8 - 10.4 mg/dL 05/04/2024 5:07 AM [facility] Comment:Reference intervals for this test were updated on 02/07/2024 to reflect our healthy population more accurately. There may be differences in the flagging of prior results with similar values performed with this method. Those prior results can be interpreted in the context of the updated reference intervals. Chloride 101 98 - 107 mmol/L 05/04/2024 5:07 AM CDT [facility] Glucose 126(H) 70 - 99 mg/dL 05/04/2024 5:07 AM CDT [facility] Alkaline Phosphatase 51 40 - 150 U/L 05/04/2024 5:07 AM CDT [facility] AST 25 0 - 45 U/L 05/04/2024 5:07 AM CDT [facility] ALT 27 0 - 70 U/L 05/04/2024 5:07 AM CDT [facility] Protein Total 6.2(L) 6.4 - 8.3 g/dL 05/04/2024 5:07 AM CDT [facility] Albumin 4.1 3.5 - 5.2 g/dL 05/04/2024 5:07 AM CDT [facility] Bilirubin Total <0.2 <=1.2 mg/dL 05/04/2024 5:07 AM [facility] Blood VENOUS LINE / Unknown Venipuncture / Unknown 05/04/2024 4:44 AM CDT 05/04/2024 4:48 AM CDT us Per Schmitt MD LAB - BLOOD ORDERABLES Final Res ult [facility] [address] [place] [address] from Last 3 Months or Most Recently Relevant to Health Maintenance Insurance [employer] Member Subscriber Plan / Payer (Ef fective 2022-Present) Name:Juan Lawson Relation to Subscriber:Self Name:Lulu Juan Mora Payer ID:[id number] (NAIC) Type:HMO Address: [address] [address] Care Teams Busperson Relationship Specialty Start Date End Date No Ref-Primary, Physician PCP - General 02/24/18
--- OUTSIDE RECORDS SUMMARY | 2024-08-29 22:42 | XMS_ITS | Clinical Summary ---
Author Organization [facility] Address [address] [place] [address] Care Team Providers Care English And Reading Instructor Name Role Phone No Ref-Primary, Physician Primary [...] - 145 mmol/L 05/04/2024 5:07 AM CDT [facility] Potassium 3.9 3.4 - 5.3 mmol/L 05/04/2024 5:07 AM [facility] Carbon Dioxide (CO2) 26 22 - 29 mmol/L 05/04/2024 5:07 AM [facility] Anion Gap 10 7 - 15 mmol/L 05/04/2024 5:07 AM [facility] Urea Nitrogen 11.1 6.0 - 20.0 mg/dL 05/04/2024 5:07 AM [facility] Creatinine 0.78 0.67 - 1.17 mg/dL 05/04/2024 5:07 AM [facility] GFR Estimate >90 >60 mL/min/1.7 3m2 05/04/2024 5:07 AM [facility] Comment:eGFR calculated usin 2020 CKD-EPI equation. Calcium 8.7(L) 8.8 - 10.4 mg/dL 05/04/2024 5:07 AM [facility] Comment:Reference intervals for this test were updated on 02/07/2024 to reflect our healthy population more accurately. There may be differences in the flagging of prior results with similar values performed with this method. Those prior results can be interpreted in the context of the updated reference intervals. Chloride 101 98 - 107 mmol/L 05/04/2024 5:07 AM [facility] Glucose 126(H) 70 - 99 mg/dL 05/04/2024 5:07 AM [facility] Alkaline Phosphatase 51 40 - 150 U/L 05/04/2024 5:07 AM [facility] AST 25 0 - 45 U/L 05/04/2024 5:07 AM [facility] ALT 27 0 - 70 U/L 05/04/2024 5:07 AM [facility] Protein Total 6.2(L) 6.4 - 8.3 g/dL 05/04/2024 5:07 AM [facility] Albumin 4.1 3.5 - 5.2 g/dL 05/04/2024 5:07 AM [facility] Bilirubin Total <0.2 <=1.2 mg/dL 05/04/2024 5:07 AM [facility] Blood VENOUS LINE / Unknown Venipuncture / Unknown 05/04/2024 4:44 AM CDT 05/04/2024 4:48 AM CDT us Per Schmitt MD LAB - BLOOD ORDERABLES Final Res ult [facility] [address] [place] [address], [facility] from Last 3 Months or Most Recently Relevant to Health Maintenance Insurance [employer] Care Teams English And Reading Instructor Relationship Specialty Start Date End Date No Ref-Primary, Physician PCP - General 02/24/18
--- OUTSIDE RECORDS SUMMARY | 2024-08-29 22:42 | XMS_ITS | Clinical Summary ---
Author Organization [facility] Address [place], [place] [address] Care Team Providers Care Freelance Data Entry Name Role Phone Clinic, No Pcp Or [...] 2 Son 1 Kydon Alive Son 2 [facility] Alive Social History Tobacco Use [...] Comments Blood Pressure 111/68 07/21/2022 2:05 AM OPERATIONAL INTELLIGENCE OFFICER Pulse 59 07/21/2022 2:05 AM OPERATIONAL INTELLIGENCE OFFICER Temperature 36.8 C (98.2 F) 07/21/2022 2:05 AM OPERATIONAL INTELLIGENCE OFFICER Respiratory Rate 16 07/21/2022 2:05 AM OPERATIONAL INTELLIGENCE OFFICER Oxygen Saturation 97% 07/21/2022 2:05 AM OPERATIONAL INTELLIGENCE OFFICER Inhaled Oxygen Concentration - - Weight 73 kg (161 lb) 07/20/2022 8:55 PM OPERATIONAL INTELLIGENCE OFFICER Height 175.3 cm (5' 9) 07/20/2022 8:55 PM OPERATIONAL INTELLIGENCE OFFICER Body Mass Index 23.78 07/20/2022 8:55 PM OPERATIONAL INTELLIGENCE OFFICER Plan of Treatment Health Maintenance Due Date [...] Karishma Sagastume MD Insurance MEDICAID Care Teams Freelance Data Entry Relationship Specialty Start Date End Date Clinic, No Pcp Or . PCP - General 10/15/15
--- OUTSIDE RECORDS SUMMARY | 2024-08-29 22:42 | XMS_ITS | Clinical Summary ---
Author Organization [facility] Address [address], [place] [address] Care Team Providers Care Business Excellence Manager Name Role Phone No Primary/Referring, Phy Primary Care Provider Unavailable Source Comments You are receiving this document as you are listed as the primary care provider,follow-up provider, or the patient has been referred to you for consultation.This is in compliance with the Medicare and[facility] Cent[facility] EHR Incentive Program,which states Providers who transition their patient to another setting of careor provider of care or refers their patient to another provider of care shouldprovide summary care record for each transition of care or referral. [employer] Allergies No known active allergies Medications Medication [...] Comments Blood Pressure 134/85 07/22/2022 1:28 PM ACCOUNT MANAGEMENT SPECIALIST Pulse 67 07/22/2022 2:02 PM ACCOUNT MANAGEMENT SPECIALIST Temperature 36.7 C (98 F) 07/22/2022 1:28 PM ACCOUNT MANAGEMENT SPECIALIST Respiratory Rate 18 07/22/2022 1:28 PM ACCOUNT MANAGEMENT SPECIALIST Oxygen Saturation 98% 07/22/2022 1:28 PM ACCOUNT MANAGEMENT SPECIALIST Inhaled Oxygen Concentration - - Weight 72.6 kg (160 lb) 07/21/2022 3:00 AM ACCOUNT MANAGEMENT SPECIALIST Height 175.3 cm (5' 9) 07/21/2022 3:00 AM ACCOUNT MANAGEMENT SPECIALIST Body Mass Index 23.63 07/21/2022 3:00 AM ACCOUNT MANAGEMENT SPECIALIST Plan of Treatment Health Maintenance Due Date [...] AG/AB 4TH GEN STAT 07/21/2022 5:00 AM ACCOUNT MANAGEMENT SPECIALIST HEPATITIS PANEL ACUTE WITH REFLEX TO CONFIRMATION STAT 07/21/2022 5:00 AM ACCOUNT MANAGEMENT SPECIALIST from Last 3 Months or Most Recently Relevant to Health Maintenance Results * Hepatitis Panel with Reflex to Confirmation (07/21/2022 5:00 AM ACCOUNT MANAGEMENT SPECIALIST) Hepatitis A Antibody, IgM Negative (Non Reactive) Negative (Non Reactive) 07/21/2022 11:31 AM [facility] Comment:IgM anti-HAV not det ected. Does not exclude the possibility of exposure to or infection with HAV. Levels of IgM anti-HAV may be below the cut-off in early infection. Hepatitis Bc Antibody,IgM Negative (Non Reactive) Negative (Non-Reacti ve) 07/21/2022 11:31 AM ACCOUNT MANAGEMENT SPECIALIST [facility] Comment:IgM anti-HBc not det ected. Does not exclude the possibility of exposure to or infection with HBV. Hepatitis B Surface Antigen Negative (Non Reactive) Negative (Non Reactive) 07/21/2022 11:31 AM ACCOUNT MANAGEMENT SPECIALIST [facility] Hepatitis C Antibody Negative (Non Reactive) Negative (Non Reactive) 07/21/2022 11:31 AM ACCOUNT MANAGEMENT SPECIALIST [facility] Comment:Antibodies to HCV no t detected. Does not exclude the possiblity of exposure to HCV. Blood Venipuncture / Unknown 07/21/2022 5:00 AM ACCOUNT MANAGEMENT SPECIALIST 07/21/2022 5:03 AM ACCOUNT MANAGEMENT SPECIALIST Earle Garnica MD LAB_1 [facility] [address] [phone] * HIV 1/2 Ag/Ab 4th Generation (07/21/2022 5:00 AM ACCOUNT MANAGEMENT SPECIALIST) HIV 1/2 Antigen/Antib arie (4th generation) Negative (Non Reactive) Negative (Non Reactive) 07/21/2022 5:47 AM ACCOUNT MANAGEMENT SPECIALIST [facility] Comment:HIV-1 p24 Antigen an d HIV-1/HIV-2 Antibody not detected Blood Venipuncture / Unknown 07/21/2022 5:00 AM ACCOUNT MANAGEMENT SPECIALIST 07/21/2022 5:03 AM ACCOUNT MANAGEMENT SPECIALIST Earle Garnica MD LAB_1 [place] [address], [facility] [phone] from Last 3 Months or Most Recently Relevant to Health Maintenance Advance Directives * Full Code (Latest Code Status on File) Date Activated Date Inactivated Comments 07/21/2022 4:02 AM 07/22/2022 7:00 PM Care Teams Business Excellence Manager Relationship Specialty Start Date End Date No Primary/Referring, Phy PCP - General 07/21/22
--- OUTSIDE RECORDS SUMMARY | 2024-08-29 22:42 | XMS_ITS | Patient Health Summary ---
Author Organization [facility] [email or web address] Address [address] [place] [address] Care Team Providers Care Cleat Layer Name Role Phone Unavailable Primary Care Provider Unavailabl e Note from [facility] [email or web address] [facility],non-owned Affiliates and Associated Physician Practices is amultiple site organization consisting of ambulatory clinics and hospital sitesin [place], [place], [place] and [place]. This disclosure is being madepursuant to the Care Everywhere program and may not contain all information available regarding this patient. Last updated 18.[facility] [email or web address] Allergies No known active allergies Medications * [...] EKG 12-LEAD (02/14/2019 9:21 AM CDT) Pathologist [facility] Ventricular Rate 57 BPM [facility] Atrial Rate 57 BPM [facility] P-R Interval 120 ms [facility] QRS Duration ms 92 ms [facility] Q-T Interval ms 406 ms [facility] QTC Calculation (Bezet) 395 ms [facility] Calculated P [place] 54 degrees [facility] Calculated R [place] 74 degrees [facility]USE Calculated T [place] 60 degrees [facility] Interpretation EKG Sinus bradycardia Otherwise normal ECG No previous ECGs available Confirmed by PAULO NI MD ([id number]) on 02/15/2019 2:13:18 PM [facility] 02/14/2019 9:21 AM CDT 02/15/2019 2:13 PM CDT James Esquivel DO ECG ORDERABLES [facility] * (ABNORMAL) CBC W AUTO DIFFERENTIAL (02/14/2019 9:17 AM CDT) Pathologist [facility] WBC 6.3 4.4 - 10.7 x10E9/L 02/14/2019 9:31 AM CDT [facility] WBC Corrected x10E9/L 02/14/2019 9:31 AM CDT [facility] RBC 4.92 3.80 - 5.40 x10E12/L 02/14/2019 9:31 AM CDT [facility] Hemoglobin 16.9 12.0 - 17.6 gm/dL 02/14/2019 9:31 AM CDT [facility] Hematocrit 47.0 35.2 - 51.7 % 02/14/2019 9:31 AM CDT [facility] MCV 95.5 80.7 - 98.3 fl 02/14/2019 9:31 AM CDT [facility] MCH 34.3(H) 26.7 - 34.0 pg 02/14/2019 9:31 AM CDT [facility] MCHC 36.0(H) 30.8 - 35.9 gm/dL 02/14/2019 9:31 AM CDT [facility] Platelet Count 261 153 - 416 x10E9/L 02/14/2019 9:31 AM CDT [facility] RDW-CV 12.2 12.1 - 14.9 % 02/14/2019 9:31 AM CDT [facility] MPV 9.3(L) 9.4 - 12.9 fl 02/14/2019 9:31 AM CDT [facility] Neutrophils % 56.0 44.0 - 73.0 % 02/14/2019 9:31 AM CDT [facility] Lymphocytes % 33.8 20.0 - 43.0 % 02/14/2019 9:31 AM CDT [facility] Monocytes % 8.5 5.0 - 13.0 % 02/14/2019 9:31 AM CDT [facility] Eosinophils % 1.1 0.0 - 6.0 % 02/14/2019 9:31 AM CDT [facility] Basophils % 0.3 0.0 - 2.0 % 02/14/2019 9:31 AM CDT [facility] Immature Granulocytes 0.3 0 - 1 % 02/14/2019 9:31 AM CDT [facility] Neutrophil Absolute 3.51 2.01 - 7.14 x10E9/L 02/14/2019 9:31 AM CDT [facility] Lymphocytes Absolute 2.12 1.07 - 3.94 x10E9/L 02/14/2019 9:31 AM CDT [facility] Monocytes Absolute 0.53 0.26 - 1.07 x10E9/L 02/14/2019 9:31 AM CDT [facility] Eosinophils Absolute 0.07 0 - 0.47 x10E9/L 02/14/2019 9:31 AM CDT [facility] Basophils Absolute 0.02 0 - 0.08 x10E9/L 02/14/2019 9:31 AM CDT [facility] Immature Granulocytes Absolute 0.02 0.00 - 0.06 x10E9/L 02/14/2019 9:31 AM CDT [facility] nRBC Auto 0 /100 WBC 02/14/2019 9:31 AM CDT [facility] Blood BLOOD SPECIMEN / Unknown Venipuncture / Unknown 02/14/2019 9:17 AM CDT 02/14/2019 9:22 AM CDT James Esquivel DO LAB - HEMATOLOGY ORD ERABLES [facility] [address] [place] [address] * (ABNORMAL) COMPREHENSIVE METABOLIC PANEL (02/14/2019 9:17 AM CDT) Glucose 86 74 - 106 mg/dL 02/14/2019 9:40 AM CDT [facility] Sodium 140 136 - 145 mmol/L 02/14/2019 9:40 AM CDT [facility] Potassium 4.0 3.5 - 5.1 mmol/L 02/14/2019 9:40 AM CDT [facility] Chloride 101 98 - 107 mmol/L 02/14/2019 9:40 AM CDT [facility] CO2 28 23 - 31 mmol/L 02/14/2019 9:40 AM CDT [facility] Calcium 9.5 8.4 - 10.2 mg/dL 02/14/2019 9:40 AM CDT [facility] Anion Gap 11 8 - 16 mmol/L 02/14/2019 9:40 AM CDT [facility] BUN 9 8.9 - 20.6 mg/dL 02/14/2019 9:40 AM CDT [facility] Creatinine 0.92 0.73 - 1.18 mg/dL 02/14/2019 9:40 AM CDT [facility] Alkaline Phosphatase 66 40 - 150 U/L 02/14/2019 9:40 AM CDT [facility] ALT 108(H) 13 - 61 U/L 02/14/2019 9:40 AM CDT [facility] AST 86(H) 5 - 34 U/L 02/14/2019 9:40 AM CDT [facility] Protein Total 7.4 6.4 - 8.3 gm/dL 02/14/2019 9:40 AM CDT [facility] Albumin 4.7 3.5 - 5.2 gm/dL 02/14/2019 9:40 AM CDT [facility] Bilirubin Total 0.5 0.2 - 1.2 mg/dL 02/14/2019 9:40 AM CDT [facility] eGFR by MDRD >60 >60 mL/min/1.7 3m2 02/14/2019 9:40 AM CDT [facility] eGFR by MDRD >60 >60 mL/min/1.7 3m2 02/14/2019 9:40 AM CDT [facility] Blood BLOOD SPECIMEN / Unknown Venipuncture / Unknown 02/14/2019 9:17 AM CDT 02/14/2019 9:22 AM CDT James Esquivel DO LAB - CHEMISTRY ORDEmilia EVANGELISTA [facility] [address] [address] * LIPASE BLOOD (02/14/2019 9:17 AM CDT) Lipase 12 8 - 78 U/L 02/14/2019 11:18 AM CDT [facility] Blood BLOOD SPECIMEN / Unknown Venipuncture / Unknown 02/14/2019 9:17 AM CDT 02/14/2019 9:22 AM CDT Cleve Trevino PA-C LAB - CHEMISTRY ORDEmilia EVANGELISTA [facility] [address] [address]
--- OUTSIDE RECORDS SUMMARY | 2024-08-29 22:42 | XMS_ITS | Continuity of Care Document ---
Author Organization [facility] Address [address] [address] [place] [address] Phone Care Team Providers Care Hand Assembler For Puller Over Name Role Phone No Information Unavailable Unavailable Advance Directives Directive Yes / No Effective Date File Name No Information Encounters Encounter Description Practice Location Reason(s) For Visit Diagnoses Date Provider Providers Copied on Encounter [facility], [address] [address], [place], [place], [id number], tel:[phone] No Information No Information Referring Provider: Julita Faria SALES SUPPORT TECHNICIAN, [address] [place], [address]. tel:[phone] Family History Family Member Type Diagnosis Age At Onset No Information Payers Payer name Insurance type Covered democrat ID Authoriza tion(s) No Information Social History [...]
--- OUTSIDE RECORDS SUMMARY | 2024-08-29 22:42 | XMS_ITS | Clinical Summary ---
Author Organization [facility] Address [address] [place] [address] Care Team Providers Care Dock Hand Name Role Phone Unavailable Primary Care Provider Unavailabl e Source Comments [facility],non-owned Affiliates and Associated Physician Practices is amultiple site organization consisting of ambulatory clinics and hospital sitesin [place], [place], [place] and [place]. This disclosure is being madepursuant to the Care Everywhere program and may not contain all information available regarding this patient. Last updated 18.[facility] Allergies No known active allergies Medications * [...]
[2024-08-29] MEDS: 0.9 % SODIUM CHLORIDE 1000 ml 1,000 ML IV (22:55)
[2024-08-29] MEDS: GI COCKTAIL (VISC LIDO/ANTACID) 30 ML PO (22:56)
[2024-08-29] MEDS: ONDANSETRON 2 MG/ML inj 4 MG IVP (22:58)
[2024-08-29] MEDS: KETOROLAC 30 MG/ML inj IVP (22:59)
[2024-08-29 23:21] VITALS: PULSE 72; O2SAT 97
[2024-08-29 23:30] VITALS: PULSE 73; O2SAT 97
[2024-08-29 23:45] VITALS: PULSE 73; O2SAT 96
== END 2024-08-30 00:03 | disposition home or self-care (01) ==
PROVIDERS: Emergency Provider Family Medicine
DX: R10.13 Epigastric pain (principal); K31.89 Other diseases of stomach and duodenum
CPT/HCPCS: 96374; 96375; 99283; A9270; J1885; J2405; J7030

== ENCOUNTER 2024-08-30 08:17 | Outpatient (CLI) | payer BC, SELFPAY | END 2024-08-30 08:18 | disposition home or self-care (01) | LOC: RAD 08:18 | PROVIDERS: Visit Provider Surgery | DX: K29.80 Duodenitis without bleeding (principal) | CPT/HCPCS: 74246; 74248 ==

== ENCOUNTER 2025-02-01 22:54 | Emergency (ER) | payer BC, SELFPAY ==
--- OUTSIDE RECORDS SUMMARY | 2024-08-29 10:41 | XMS_ITS | Continuity of Care Document ---
Author Organization [facility] Address [address] [address] [place] [address] Phone Care Team Providers Care Truck Supervisor Name Role Phone No Information Unavailable Unavailable Advance Directives Directive Yes / No Effective Date File Name No Information Encounters Encounter Description Practice Location Reason(s) For Visit Diagnoses Date Provider Providers Copied on Encounter [facility], [address] [address], [place], [place], [id number], tel:[phone] No Information No Information Referring Provider: Julita Faria SPON[facility]ER, [address] [place], [address]. tel:[phone] Family History Family Member Type Diagnosis Age At Onset No Information Payers Payer name Insurance type Covered libertarian ID Authoriza tion(s) No Information Social History Type Description Quantity Date Captured Comments Sex Male Smoking Status No Information Chief Complaint And Reason For Visit No Information Reason For Referral Reason For Referral No Information History Of Present Illness Encounter Date Complaint History Of Prese nt Illness No Information Functional Status Date Functional Assessmen t No Information Instructions Date Instruction Additional Infor mation No Information Assessments Type Assessment Date No Information Patient Care Teams Name Effective Dates (start - stop) Status Members No Information
--- OUTSIDE RECORDS SUMMARY | 2024-08-29 10:41 | XMS_ITS | Continuity of Care Document ---
Author Organization [facility] Address [address] [address] [place] [address] Phone Care Team Providers Care Clay Products Machine Operator Name Role Phone No Information Unavailable Unavailable Advance Directives Directive Yes / No Effective Date File Name No Information Encounters Encounter Description Practice Location Reason(s) For Visit Diagnoses Date Provider Providers Copied on Encounter [facility], [address] [address], [place], [place], [id number], tel:[phone] No Information No Information Referring Provider: Julita Faria [facility], [address] [place], [address]. tel:[phone] Family History Family Member Type Diagnosis Age At Onset No Information Payers Payer name Insurance type Covered green party ID Authoriza tion(s) No Information Social History [...]
--- OUTSIDE RECORDS SUMMARY | 2025-02-01 22:56 | XMS_ITS | Clinical Summary ---
Author Organization [facility] Address [address] [address] Care Team Providers Care Imaging Nurse Name Role Phone No Primary/Referring, Phy Primary Care Provider Unavailable Source Comments You are receiving this document as you are listed as the primary care provider,follow-up provider, or the patient has been referred to you for consultation.This is in compliance with the Medicare and[facility] EHR Incentive Program,which states Providers who transition their patient to another setting of careor provider of care or refers their patient to another provider of care shouldprovide summary care record for each transition of care or referral. [facility] Allergies No known active allergies Medications guaiFENesin (AKA MUCINEX) 600 MG 12 hour release tablet Take 1,200 mg by mouth two times a day. Active Multiple Vitamins-Asphalt Patcher als (EMERGEN-C IMMUNE OR) Active benzonatate (AKA TESSALON) 100 MG capsule Take 1-2 Caps by mouth three times a day as needed for Cough. 30 Cap 0 04/26/20 15 Active fluticasone (AKA FLONASE) 50 MCG/ACT nasal solution Apply or instill 2 Sprays into both nostrils daily. 16 g 0 04/26/20 15 Active aspirin 325 MG tablet Take 325 mg by mouth daily. Active LORazepam (ATIVAN) 0.5 MG tablet Take 1 Tab by mouth every 8 hours as needed for Anxiety. 6 Tab 0 06/27/20 16 Active nicotine (NICODERM CQ) 21 MG/24HR patchIndicatio ns:Nicotine Dependence Apply 1 Patch to skin every 24 hours. Remove old patch with each new application. 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 Vitamin B12 deficiency (dietary) anemia 07/22/20 22 Numbness and tingling 07/21/2022 Generalized weakness 07/21/2022 Social History Tobacco Use Types Packs/Day Years Used Date Smoking Tobacco: Every Day Cigarettes Alcohol Use Standard Drinks/Week Comments No 0 (1 standard drink = 0.6 oz pur e alcohol) Sex and Gender Information Value Date Recorded Sex Assigned at Not on file Legal Sex Male 3:02 PM BEAD WRAPPER Gender Identity Not on file Sexual Orientation Not on file Last Filed Vital Signs Vital Sign Reading Time Taken Comments Blood Pressure 134/85 07/22/2022 1:28 PM BEAD WRAPPER Pulse 67 07/22/2022 2:02 PM BEAD WRAPPER Temperature 36.7 C (98 F) 07/22/2022 1:28 PM BEAD WRAPPER Respiratory Rate 18 07/22/2022 1:28 PM BEAD WRAPPER Oxygen Saturation 98% 07/22/2022 1:28 PM BEAD WRAPPER Inhaled Oxygen Concentration - - Weight 72.6 kg (160 lb) 07/21/2022 3:00 AM BEAD WRAPPER Height 175.3 cm (5' 9) 07/21/2022 3:00 AM BEAD WRAPPER Body Mass Index 23.63 07/21/2022 3:00 AM BEAD WRAPPER Plan of Treatment Health Maintenance Due Date Last Done Comments Adult Preventive Visit 02/22/2004 HepB Vaccine (1) 2005 Pneumococcal Vaccine (1 of 2 - PCV) 2005 DTaP/Tdap/Td Vaccine (1 - Tdap) 02/08/2007 7 Cholesterol 2021 COVID-19 Vaccine (1 - 2023-2 5 season) 2024 Influenza Vaccine (#1) 2025 Zoster/Shingles Vaccine (1 of 2) 02/22/2036 HIV Screening (Preventive Services) Completed 07/21/2022 Hep C Screening (Preventive Services) Completed 07/21/2022 HPV Vaccine Aged Out No longer eligi ble based on patient's age to complete this topic HepA Vaccine Aged Out No longer eligi ble based on patient's age to complete this topic Hib Vaccine Aged Out No longer eligi ble based on patient's age to complete this topic IPV (Polio) Vaccine Aged Out No longe r eligible based on patient's age to complete this topic MCV4 Vaccine Aged Out No longer eligi ble based on patient's age to complete this topic Meningococcal B Vaccine Aged Out No l onger eligible based on patient's age to complete this topic Procedures Procedure Name Priority Date/Time Associated Diagnosis Comments HIV 1/2 AG/AB 4TH GEN STAT 07/21/2022 5:00 AM BEAD WRAPPER HEPATITIS PANEL ACUTE WITH REFLEX TO CONFIRMATION STAT 07/21/2022 5:00 AM BEAD WRAPPER from Last 3 Months or Most Recently Relevant to Health Maintenance Results * Hepatitis Panel with Reflex to Confirmation (07/21/2022 5:00 AM BEAD WRAPPER) Hepatitis A Antibody, IgM Negative (Non Reactive) Negative (Non Reactive) 07/21/2022 11:31 AM [facility] Comment:IgM anti-HAV not det ected. Does not exclude the possibility of exposure to or infection with HAV. Levels of IgM anti-HAV may be below the cut-off in early infection. Hepatitis Bc Antibody,IgM Negative (Non Reactive) Negative (Non-Reacti ve) 07/21/2022 11:31 AM [facility] Comment:IgM anti-HBc not det ected. Does not exclude the possibility of exposure to or infection with HBV. Hepatitis B Surface Antigen Negative (Non Reactive) Negative (Non Reactive) 07/21/2022 11:31 AM [facility] Hepatitis C Antibody Negative (Non Reactive) Negative (Non Reactive) 07/21/2022 11:31 AM [facility] Comment:Antibodies to HCV no t detected. Does not exclude the possiblity of exposure to HCV. Blood Venipuncture / Unknown 07/21/2022 5:00 AM BEAD WRAPPER 07/21/2022 5:03 AM BEAD WRAPPER us Earle Garnica MD LAB_1 Final Result Performing Organization Address City/[facility]/ZIP Co de Phone Number [facility] [address] [address], [facility] [phone] * HIV 1/2 Ag/Ab 4th Generation (07/21/2022 5:00 AM BEAD WRAPPER) HIV 1/2 Antigen/Antib arie (4th generation) Negative (Non Reactive) Negative (Non Reactive) 07/21/2022 5:47 AM BEAD WRAPPER [facility] Comment:HIV-1 p24 Antigen an d HIV-1/HIV-2 Antibody not detected Blood Venipuncture / Unknown 07/21/2022 5:00 AM BEAD WRAPPER 07/21/2022 5:03 AM BEAD WRAPPER Earle Garnica MD LAB_1 Final Result [address] [address], [facility] [phone] from Last 3 Months or Most Recently Relevant to Health Maintenance Advance Directives * Full Code (Latest Code Status on File) Date Activated Date Inactivated Comments 07/21/2022 4:02 AM 07/22/2022 7:00 PM Care Teams Imaging Nurse Relationship Specialty Start Date End Date No Primary/Referring, Phy PCP - General 07/21/22
--- OUTSIDE RECORDS SUMMARY | 2025-02-01 22:56 | XMS_ITS | Clinical Summary ---
Author Organization [facility] Address [address] [place] [address] Care Team Providers Care Signal And Communications Maintainer Name Role Phone Clinic, No Pcp Or [...] 2 Son 1 Kydon Alive Son 2 keston Alive Social History Tobacco Use Types Packs/Day [...] Comments Blood Pressure 111/68 07/21/2022 2:05 AM TALENT MANAGEMENT MANAGER Pulse 59 07/21/2022 2:05 AM TALENT MANAGEMENT MANAGER Temperature 36.8 C (98.2 F) 07/21/2022 2:05 AM TALENT MANAGEMENT MANAGER Respiratory Rate 16 07/21/2022 2:05 AM TALENT MANAGEMENT MANAGER Oxygen Saturation 97% 07/21/2022 2:05 AM TALENT MANAGEMENT MANAGER Inhaled Oxygen Concentration - - Weight 73 kg (161 lb) 07/20/2022 8:55 PM TALENT MANAGEMENT MANAGER Height 175.3 cm (5' 9) 07/20/2022 8:55 PM TALENT MANAGEMENT MANAGER Body Mass Index 23.78 07/20/2022 8:55 PM TALENT MANAGEMENT MANAGER Plan of Treatment Health Maintenance Due Date Last Done Comments Tetanus booster 1997 HIV for age 15-65 2001 Hepatitis C screening for ag e 18-79 02/22/2004 Hepatitis B series for 19+ ( 1 of 3 - 19+ 3-dose series) 2005 BMI (ht and wt on same day) for age 18+ 10/14/2016 10/15/2015 Depression screening for age 12+ 10/14/2016 10/15/19 16 Lipids for age 35-44 2021 COVID-19 vaccine series ( - 2023- season) 2024 Influenza Vaccine (#1) 2025 Pneumococcal series for age 6-49 Aged Out No longer eligible based on patient's age to complete this topic Goals Goal Patient Goal Type Associated Problems Recent Progress Patient-Stated? Author BLOOD PRESSURE - MAINTAINS BP less than 140/90 Blood Pressure No Karishma Sagastume MD Insurance MEDICAID Care Teams Signal And Communications Maintainer Relationship Specialty Start Date End Date Clinic, No Pcp Or . PCP - General 10/15/15
--- OUTSIDE RECORDS SUMMARY | 2025-02-01 22:56 | XMS_ITS | Clinical Summary ---
Author Organization [facility] [employer] [facility] Address [address] [place] [address] Care Team Providers Care Bass String Winder Name Role Phone Unavailable Primary Care Provider Unavailabl e Source Comments [facility] [employer] ([employer]),non-owned Affiliates and Associated Physician Practices is amultiple site organization consisting of ambulatory clinics and hospital sitesin [place], [place]. This disclosure is being madepursuant to the Care Everywhere program and may not contain all information available regarding this patient. Last updated 18.[facility] [employer] [facility] Allergies No known active allergies Medications * Be aware that medications may not be up to date on this document. Alwaysverify current medications with the patient. hydrOXYzine hcl (ATARAX) 25 MG tablet Take [...] at Not on file Legal Sex Male 12:02 AM CDT Gender Identity Not on file [...] of 3 - 19+ 3-dose series) 2005 COVID-19 VACCINE ( - 2023-2 5 season) 2024 DEPRESSION SCREENING 07/25/2024 INFLUENZA VACCINE (#1) 2025 ZOSTER VACCINE (1 of 2) 02/22/2036 HIB VACCINE Aged Out No longer eligi ble based on patient's age to complete this topic HPV VACCINE Aged Out No longer eligi ble based on patient's age to complete this topic MENINGOCOCCAL (Group B) VACC INE SHARED DECISION-MAKING Aged Out No longer eligibl e based on patient's age to complete this topic MENINGOCOCCAL GROUPS A/C/Y/W VACCINE Aged Out No longer eligible b ased on patient's age to complete this topic PNEUMOCOCCAL VACCINE Aged Out No long er eligible based on patient's age to complete this topic
--- OUTSIDE RECORDS SUMMARY | 2025-02-01 22:56 | XMS_ITS | Clinical Summary ---
Author Organization [facility] Address [address] [place] [address] Care Team Providers Care Micro Computer Specialist Name Role Phone No Ref-Primary, Physician Primary [...] HM ORDERS 1986 YEARLY PREVENTIVE VISIT 1989 HEPATITIS B VACCINE (1 of 3 - 19+ 3-dose series) 2005 DTAP/TDAP/TD VACCINE (1 - Tdap) 2011 COVID-19 VACCINE ( - season) 2024 PHQ-2 (once per calendar year) 2024 INFLUENZA VACCINE (Season Ended) 2025 DIABETES SCREENING 05/04/2027 05/04/2024, 1 , 04/29/2024, Additional history exists ZOSTER VACCINE (1 of 2) 02/22/2036 HEPATITIS C SCREENING Completed 07/21/2022 HIV SCREENING Completed 07/21/2022 HPV VACCINE Aged Out No longer eligi ble based on patient's age to complete this topic MENINGITIS VACCINE Aged Out No longer eligible based on patient's age to complete this topic PNEUMOCOCCAL VACCINE: PEDIATRICS (0 to 5 YEARS) AND AT-RISK PATIENTS (6 to 49 YEARS) Aged Out No longer eligible based on patient's age to complete this topic Procedures Procedure Name Priority Date/Time Associated Diagnosis Comments COMPREHENSIVE METABOLIC PANEL STAT 05/04/2024 4:44 AM CDT from Last 3 Months or Most Recently Relevant to Health Maintenance Results * (ABNORMAL) Comprehensive metabolic panel (05/04/2024 4:44 AM CDT) Sodium 137 135 - 145 mmol/L 05/04/2024 5:07 AM CDT [facility] Potassium 3.9 3.4 - 5.3 mmol/L 05/04/2024 5:07 AM CDT [facility] Carbon Dioxide (CO2) 26 22 - 29 mmol/L 05/04/2024 5:07 AM [facility] Anion Gap 10 7 - 15 mmol/L 05/04/2024 5:07 AM [facility] Urea Nitrogen 11.1 6.0 - 20.0 mg/dL 05/04/2024 5:07 AM [facility] Creatinine 0.78 0.67 - 1.17 mg/dL 05/04/2024 5:07 AM [facility] GFR Estimate >90 >60 mL/min/1.7 3m2 05/04/2024 5:07 AM [facility] Comment:eGFR calculated usid 2020 CKD-EPI equation. Calcium 8.7(L) 8.8 - 10.4 mg/dL 05/04/2024 5:07 AM [facility] Comment:Reference intervals for this test were updated on 02/07/2024 to reflect our healthy population more accurately. There may be differences in the flagging of prior results with similar values performed with this method. Those prior results can be interpreted in the context of the updated reference intervals. Chloride 101 98 - 107 mmol/L 05/04/2024 5:07 AM [facility] Glucose 126(H) 70 - 99 mg/dL 05/04/2024 5:07 AM [facility] Alkaline Phosphatase 51 40 - 150 U/L 05/04/2024 5:07 AM [facility] AST 25 0 - 45 U/L 05/04/2024 5:07 AM [facility] ALT 27 0 - 70 U/L 05/04/2024 5:07 AM [facility] Protein Total 6.2(L) 6.4 - 8.3 g/dL 05/04/2024 5:07 AM [facility] Albumin 4.1 3.5 - 5.2 g/dL 05/04/2024 5:07 AM [facility] Bilirubin Total <0.2 <=1.2 mg/dL 05/04/2024 5:07 AM [facility] Blood VENOUS LINE / Unknown Venipuncture / Unknown 05/04/2024 4:44 AM CDT 05/04/2024 4:48 AM T us Per Schmitt MD LAB - BLOOD ORDERABLES Final Res ult [facility] [address] [place] [address], [facility] from Last 3 Months or Most Recently Relevant to Health Maintenance Insurance [facility] Care Teams Micro Computer Specialist Relationship Specialty Start Date End Date No Ref-Primary, Physician PCP - General 02/24/18
[2025-02-01 23:00] VITALS: BP 162/89; PULSE 74; RESP 16; TEMP 36.6; O2SAT 98; BMI 23.0
--- NOTE | 2025-02-01 23:22 | ED.UPPEXIN ---
HPI - Extremity Injury (Upper) General Date Seen: 02/01/25 Chief Complaint: Extremity Pain/Injury, Upper Stated Complaint: swollen arms Time Seen by Provider: 02/01/25 23:03 Source: patient, RN notes reviewed and old records reviewed Mode of arrival: ambulatory Limitations: no limitations History of Present Illness HPI narrative: Patient is the 31-year-old gentleman who comes in because of pain in both of his extensor forearms bilaterally, he has noted this for the past week he describes it as swelling. Both are equal 1 is not worse than the other 1. No numbness and tingling associated with this, he gets some relief with menthol wraps around his wrist. And took some Tylenol this morning. 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 No history of falls or injury. No history of fevers chills or other issue. MD complaint: injury to: left and right Related Data Home Medications ?Medication ?Instructions ?Recorded ?Confirmed alprazolam 1 mg tablet 1 mg PO DAILY PRN 08/13/24 08/29/24 dextroamphetamine-amphetamine 10 1 tab PO DAILY PRN 08/13/24 08/29/24 mg tablet dextroamphetamine-amphetamine 30 1 tab PO QAM 08/13/24 08/29/24 mg tablet Previous Rx's ?Medication ?Instructions ?Recorded omeprazole 40 mg capsule,delayed 40 mg PO BID #60 caps 08/16/24 release sucralfate 1 gram tablet 1 g PO BID #60 tabs 08/16/24 tramadol 50 mg tablet 50 mg PO TID PRN pain #10 tabs 08/29/24 Allergies Allergy/AdvReac Type Severity Reaction Status Date / Time No Known Drug Allergies Allergy Verified 08/29/24 20:38 Review of Systems Status of ROS: Reports: 10 or more systems reviewed and unremarkable except as noted in History and below PFSH PFS Social History Smoking Status: Current every day smoker What tobacco products do you use: cigarettes Do you use any of these nicotine containing products: None How often do you have a drink containing alcohol: never AUDIT-C Alcohol total score: 0 Non-prescribed substance use: denies use Exam Narrative: Exam Narrative: On examination bilaterally he has a little bit of fullness of his extensor forearms bilaterally, tenderness to palpation over this area in his mid and distal. 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 Const: Vital Signs, click to edit/add: Vital Signs - 24 hr 02/01/25 23:00 Temperature 97.8 F Pulse Rate [Pulse Oximeter] 74 Respiratory Rate 16 Blood Pressure [Ri ght Upper Arm] 162/89 H Pulse Oximetry 98 Oxygen Delivery Me thod Room Air Course Vital Signs Vital signs: Initial Vital Signs Temperature 97.8 F 02/01/25 23:00 Temperature Source Temporal Artery Scan 02/01/25 23:00 Pulse Rate 74 02/01/25 23:00 Respiratory Rate 16 02/01/25 23:00 Blood Pressure 162/89 H 02/01/25 23:00 Blood Pressure Mean 113 H 02/01/25 23:00 Blood Pressure Position Sitting 02/01/25 23:00 Pulse Oximetry 98 02/01/25 23:00 Oxygen Delivery Method Room Air 02/01/25 23:00 Vital Signs Temperature 97.8 F 02/01/25 23:00 Pulse Rate 74 02/01/25 23:00 Respiratory Rate 16 02/01/25 23:00 Blood Pressure 162/89 H 02/01/25 23:00 Pulse Oximetry 98 02/01/25 23:00 Oxygen Delivery Method Room Air 02/01/25 23:00 Temperature 97.8 F 02/01/25 23:00 Pulse Rate 74 02/01/25 23:00 Respiratory Rate 16 02/01/25 23:00 Blood Pressure 162/89 H 02/01/25 23:00 Pulse Oximetry 98 02/01/25 23:00 Oxygen Delivery Method Room Air 02/01/25 23:00 MDM - Extremity Injury (Upper) MDM Narrative Medical decision making narrative: I explained to him that this is consistent with the bilateral extensor tendonitis. I think this not consistent with a carpal tunnel syndrome, or compartment syndrome. He has no history of trauma so fracture would not be an issue, blood flow and since neuro sensation is normal. We put him in bilateral wrist splints, with a little bit of extension. This should help him, icing would be very helpful after a shift. He can take ibuprofen as he says he has a history of gastric ulcers. But he can take acetaminophen which she took this morning. We did give him a dose here. No lifting greater than 20 lb involving the wrist. No x-ray will be needed Differential Diagnosis Differential diagnosis: Likely sprain and strain of wrist and fracture of wrist Medical Records Attestation: I reviewed the patient's medical records. Discharge Plan Discharge Clinical Impression: Tendinitis of both wrists Patient Disposition: Home w/ Parent or Adult Condition: Stable Additional Instructions: Home, rest, icing his wrist so be very advantageous wear the wrist splints, with a metal bar, follow-up with orthopedics as needed for recheck, lifting greater than 20 lbs bilaterally should be avoided for the next 2 weeks Activity Level: Light activity Discharge Diet: Regular Prescriptions: No Action tramadol 50 mg tablet 50 mg PO TID PRN (Reason: pain) Qty: 10 0RF alprazolam 1 mg tablet 1 mg PO DAILY PRN dextroamphetamine-amphetamine 10 mg tablet 1 tab PO DAILY PRN dextroamphetamine-amphetamine 30 mg tablet 1 tab PO QAM sucralfate 1 gram tablet 1 g PO BID Qty: 60 2RF omeprazole 40 mg capsule,delayed release(DR/EC) 40 mg PO BID Qty: 60 2RF Follow Up/Referrals: Feng Wood MD [Staff Physician, Orthopedics] Provider,Not a Local [Primary Care Provider, Family Practice] Stand Alone Forms: [employer] Info Instructions
[2025-02-01] MEDS: ACETAMINOPHEN 500 MG TABLET 1000 MG PO (23:27)
== END 2025-02-01 23:48 | disposition home or self-care (01) ==
LOC: ED 23:19
PROVIDERS: Emergency Provider Family Medicine
DX: M67.833 Other specified disorders of tendon, right wrist (principal); M67.834 Other specified disorders of tendon, left wrist
CPT/HCPCS: 99283; A9270

== ENCOUNTER 2025-05-08 10:05 | Emergency (ER) | payer OTHER, SELFPAY ==
--- OUTSIDE RECORDS SUMMARY | 2025-05-08 10:07 | XMS_ITS | Clinical Summary ---
Author Organization [facility] Address [address] [place] [id number] Care Team Providers Care [facility] [employer] Name Role Phone Clinic, No Pcp Or [...] Comments Blood Pressure 111/68 07/21/2022 2:05 AM STOCK HOLDER Pulse 59 07/21/2022 2:05 AM STOCK HOLDER Temperature 36.8 C (98.2 F) 07/21/2022 2:05 AM STOCK HOLDER Respiratory Rate 16 07/21/2022 2:05 AM STOCK HOLDER Oxygen Saturation 97% 07/21/2022 2:05 AM STOCK HOLDER Inhaled Oxygen Concentration - - Weight 73 kg (161 lb) 07/20/2022 8:55 PM STOCK HOLDER Height 175.3 cm (5' 9) 07/20/2022 8:55 PM STOCK HOLDER Body Mass Index 23.78 07/20/2022 8:55 PM STOCK HOLDER Plan of Treatment Health Maintenance Due Date Last Done Comments Tetanus booster 1997 HIV for age 15-65 2001 Hepatitis C screening for ag e 18-79 02/22/2004 Hepatitis B series for 19+ ( 1 of 3 - 19+ 3-dose series) 2005 HPV series for age 9-45 (1 - 3-dose SCDM series) 2013 BMI (ht and wt on same day) for age 18+ 10/14/2016 10/15/2015 Depression screening for age 12+ 10/14/2016 10/15/19 16 Lipids for age 35-44 2021 COVID-19 vaccine series ( season) 2025 Influenza Vaccine (#1) 2025 RSV vaccine for adults or (1 - 1-dose 75+ series) 2061 Pneumococcal series for age 6-49 Aged Out No longer eligible based on patient's age to complete this topic Goals Goal Patient Goal Type Associated Problems Recent Progress Patient-Stated? Author BLOOD PRESSURE - MAINTAINS BP less than 140/90 Blood Pressure No Karishma Sagastume MD Insurance MEDICAID [place] [address] Care Teams [facility] [employer] Relationship Specialty Start Date End Date Clinic, No Pcp Or . PCP - General 10/15/15
--- OUTSIDE RECORDS SUMMARY | 2025-05-08 10:07 | XMS_ITS | Clinical Summary ---
Author Organization [facility] Address [address] [facility] [place] [address] Care Team Providers Care [employer] Name Role Phone No Ref-Primary, Physician Primary [...] 2005 DTAP/TDAP/TD VACCINE (1 - Tdap) 2011 PHQ-2 (once per calendar year) 2024 COVID-19 VACCINE (1 - season) 2025 INFLUENZA VACCINE (#1) 2025 DIABETES SCREENING 05/04/2027 05/04/2024, 1 , 04/29/2024, Additional history exists ZOSTER VACCINE (1 of 2) 02/22/2036 HEPATITIS C SCREENING Completed 07/21/2022 HIV SCREENING Completed 07/21/2022 HPV VACCINE (No Doses Required) Completed MENINGITIS VACCINE Aged Out No longer eligible [...] AM CDT [facility] Potassium 3.9 3.4 - 5.3 mmol/L 05/04/2024 5:07 AM CDT [facility] Carbon Dioxide (CO2) 26 22 - 29 mmol/L 05/04/2024 5:07 AM CDT [facility] Anion Gap 10 7 - 15 mmol/L 05/04/2024 5:07 AM [facility] Urea Nitrogen 11.1 6.0 - 20.0 mg/dL 05/04/2024 5:07 AM [facility] Creatinine 0.78 0.67 - 1.17 mg/dL 05/04/2024 5:07 AM [facility] GFR Estimate >90 >60 mL/min/1.7 3m2 05/04/2024 5:07 AM [facility] Comment:eGFR calculated 2020 CKD-EPI equation. Calcium 8.7(L) 8.8 - 10.4 mg/dL 05/04/2024 5:07 AM [facility] Comment:Reference intervals for this test were updated on 02/07/2024 to reflect our healthy population more accurately. There may be differences in the flagging of prior results with similar values performed with this method. Those prior results can be interpreted in the context of the updated reference intervals. Chloride 101 98 - 107 mmol/L 05/04/2024 5:07 AM [facility] Glucose 126(H) 70 - 99 mg/dL 05/04/2024 5:07 AM [facility] Alkaline Phosphatase 51 40 - 150 U/L 05/04/2024 5:07 AM [facility] AST 25 0 - 45 U/L 05/04/2024 5:07 AM [facility] ALT 27 0 - 70 U/L 05/04/2024 5:07 AM [facility] Protein Total 6.2(L) 6.4 - 8.3 g/dL 05/04/2024 5:07 AM [facility] Albumin 4.1 3.5 - 5.2 g/dL 05/04/2024 5:07 AM [facility] Bilirubin Total <0.2 <=1.2 mg/dL 05/04/2024 5:07 AM [facility] Blood VENOUS LINE / Unknown Venipuncture / Unknown 05/04/2024 4:44 AM CDT 05/04/2024 4:48 AM T Per Schmitt MD LAB - BLOOD ORDERABLES Final Res ult [facility] [address] 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
[2025-05-08 10:17] VITALS: BP 141/93; PULSE 73; RESP 18; O2SAT 99; BMI 21.1
--- NOTE | 2025-05-08 10:51 | CRLHL7_ITS ---
For Patients: As a result of the Century Cures Act, medical imaging exams and procedure reports are released immediately into your electronic medical record. You may view this report before your referring provider. If you have questions, please contact your health care provider. INDICATION: RT SIDED ABD PAIN Right-sided abdominal pain, previous appendectomy TECHNIQUE: CT of the abdomen and pelvis was obtained with 71 mL of Isovue 370 intravenous contrast. Please note that all CT scans at this facility use dose modulation, iterative reconstruction, and/or weight-based dosing when appropriate to reduce radiation dose to as low as reasonably achievable. COMPARISON: 08/16/2024. FINDINGS: Lower thorax: Normal. Liver and biliary tree: Mild hepatic steatosis. Gallbladder: Normal. Spleen: Normal. Pancreas: Normal. Adrenal glands: Normal. Kidneys and ureters: No hydronephrosis or obstructing renal calculi. Gastrointestinal tract: Paucity of intra-abdominal fat slightly limits evaluation of the bowel. Moderate stool burden is seen throughout the colon. Status post appendectomy. No evidence of bowel obstruction. Peritoneal cavity: Normal. Bladder: Normal. Pelvic organs: Normal. Vasculature: Normal. Lymph nodes: Normal. Abdominal wall: Normal. Musculoskeletal: Normal. IMPRESSION: 1. Paucity of intra-abdominal fat slightly limits evaluation of the bowel. 2. Moderate stool burden. No evidence of bowel obstruction. 3. Mild hepatic steatosis. Please note that all CT scans at this facility use dose modulation, iterative reconstruction, and/or weight-based dosing when appropriate to reduce radiation dose to as low as reasonably achievable. Dictated by Alonzo Griffith MD @ 05/08/2025 12:07:08 PM (Electronically Signed)
[2025-05-08] MEDS: MORPHINE 4 MG/ML INJ IVP (10:57)
[2025-05-08] MEDS: ONDANSETRON 2 MG/ML inj 4 MG IVP (10:58)
[2025-05-08] MEDS: LACTATED RINGERS 1000 ML 1,000 ML IV (10:59)
[2025-05-08 11:09] LABS: Hematocrit* 43.9 % (37.0-53.0); Hemoglobin* 14.8 gm/dL (13.5-17.5); Immature Granulocytes Abs Auto 0.01 K/uL (0.00-0.30); Immature Granulocytes Pct Auto 0.1 %; Mean Corpuscular HGB Conc 34 gm/dL (32-36); Mean Corpuscular Hemoglobin 31 pg (26-34); Mean Corpuscular Volume 91 fL (80-100); RDW Coefficient of Variation % 12.9 % (11.5-15.5); Red Blood Count* 4.81 m/uL (4.30-5.90); White Blood Count* 10.91 K/uL (4.50-11.00)
[2025-05-08 11:10] LABS: Lymphocytes Absolute Auto 5.00 K/uL (0.90-2.90)
[2025-05-08 11:11] LABS: Slide Review Reflex No
--- NOTE | 2025-05-08 11:17 | ED.ABDPAIN ---
HPI - Abdominal Pain General Date Seen: 05/08/25 Chief Complaint: Abdominal Pain Stated Complaint: Abdominal/R side pain Time Seen by Provider: 05/08/25 10:36 Source: patient Mode of arrival: ambulatory Limitations: no limitations History of Present Illness HPI narrative: Patient is a 40-year-old male presenting to the emergency department for right-sided abdominal pain. He had this pain a couple days ago but pain got better. States he woke up this morning with severe right-sided abdominal pain much worse than was 2 days ago. Does state he has had severe pain like this before but not this exact spot. Was previously diagnosed with gastric ulcers. Does not notice any blood in his stool. States he had a bowel movement yesterday that was normal. States he was seen in [place] 2 days ago for the abdominal pain and workup was unremarkable. 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 Has had previous appendectomy but no other abdominal surgeries. Pain is all on the right side of his abdomen and does radiate into his right flank. Denies alcohol use, IV drug use, marijuana use. Is a current smoker. Denies testicular pain. Has chills but denies fevers. States he feels short of breath because it hurts his abdomen to breathe. Does state he has intermittent chest pain but denies any current chest pain. Pain is mostly on the right side of his chest in the lower midaxillary region. Denies any other medical problems. No other concerns noted at this time. Is currently feeling very nauseated. Denies dysuria, diarrhea, vision changes. Does states he woke up with a mild headache to. Related Data Home Medications ?Medication ?Instructions ?Recorded ?Confirmed alprazolam 1 mg tablet 1 mg PO DAILY PRN 08/13/24 05/08/25 dextroamphetamine-amphetamine 10 1 tab PO DAILY PRN 08/13/24 08/29/24 mg tablet dextroamphetamine-amphetamine 30 1 tab PO BID 08/13/24 05/08/25 mg tablet buspirone 15 mg tablet 15 mg PO .PRN 05/08/25 05/08/25 Previous Rx's ?Medication ?Instructions ?Recorded omeprazole 40 mg capsule,delayed 40 mg PO BID #60 caps 08/16/24 release sucralfate 1 gram tablet 1 g PO BID #60 tabs 08/16/24 tramadol 50 mg tablet 50 mg PO TID PRN pain #10 tabs 08/29/24 Allergies Allergy/AdvReac Type Severity Reaction Status Date / Time No Known Drug Allergies Allergy Verified 05/08/25 10:26 Review of Systems Status of ROS Reports: 10 or more systems reviewed and unremarkable except as noted in History and [facility] History Smoking Status: Current every day smoker What tobacco products do you use: cigarettes Do you use any of these nicotine containing products: None How often do you have a drink containing alcohol: never AUDIT-C Alcohol total score: 0 Non-prescribed substance use: denies use Exam Narrative: Exam Narrative: Const: Well-nourished, Well-developed, in moderate distress Eyes: PERRL, no conjunctival injection, and symmetrical lids HENT: Atraumatic external nose and ears. Moist mucous membranes. Neck: Symmetric, trachea midline, No thyromegaly. CVS: RRR, No murmurs or gallops. Peripheral pulses 2+ and equal in all extremities RESP: Unlabored respiratory effort. Clear to auscultation bilaterally. GI: Right-sided abdominal tenderness, Nondistended, No rebound or guarding. MSK:Extremities w/o deformity, Normal Active ROM Skin: Warm, Dry. No rashes or lesions. Neuro: Normal Muscle tone, No focal neurological deficits. Psych: Awake, Alert, & Oriented x3. Appropriate mood and affect. Const: Vital Signs, click to edit/add: Vital Signs - 24 hr 05/08/25 10:17 05/08/25 13:20 Pulse Rate [Right] 73 62 Respiratory Rate 18 18 Blood Pressure [Ri ght Upper Arm] 141/93 H 137/100 H Pulse Oximetry 99 98 Oxygen Delivery Me thod Room Air Course Vital Signs Vital signs: Initial Vital Signs Pulse Rate 73 05/08/25 10:17 Respiratory Rate 18 05/08/25 10:17 Blood Pressure 141/93 H 05/08/25 10:17 Blood Pressure Mean 109 H 05/08/25 10:17 Blood Pressure Position Sitting 05/08/25 10:17 Pulse Oximetry 99 05/08/25 10:17 Oxygen Delivery Method Room Air 05/08/25 10:17 Vital Signs Pulse Rate 73 05/08/25 10:17 Respiratory Rate 18 05/08/25 10:17 Blood Pressure 141/93 H 05/08/25 10:17 Pulse Oximetry 99 05/08/25 10:17 Oxygen Delivery Method Room Air 05/08/25 10:17 Pulse Rate 62 05/08/25 13:20 Respiratory Rate 18 05/08/25 13:20 Blood Pressure 137/100 H 05/08/25 13:20 Pulse Oximetry 98 05/08/25 13:20 Oxygen Delivery Method Room Air 05/08/25 10:17 Medications Administered Medications: Discontinued Medications Generic Name Dose Route Start Last Admin Trade Name Freq PRN Reason Stop Dose Admin Hydromorphone HCl 0.5 mg 05/08/25 11:50 05/08/25 11:53 Hydromorphone 0.5 Mg/0.5 Ml Inj IVP 05/08/25 11:51 0.5 mg ONCE ONE Administration Lactated Ringer's 1,000 mls @ 1,000 mls/hr 05/08/25 10:51 05/08/25 13:23 Lactated Ringers 1000 Ml IV 05/08/25 11:50 Infused .Q1H ONE Infusion Morphine Sulfate 4 mg 05/08/25 10:51 05/08/25 10:57 Morphine 4 Mg/Ml Inj IVP 05/08/25 10:52 4 mg ONCE ONE Administration Ondansetron HCl 4 mg 05/08/25 10:51 05/08/25 10:58 Ondansetron 2 Mg/Ml Inj IVP 05/08/25 10:52 4 mg ONCE ONE Administration MDM - Abdominal Pain MDM Narrative Medical decision making narrative: Patient is a 40-year-old male presenting to the emergency department for abdominal pain. Pain is on the right side of his abdomen and differential at this time this pancreatitis, gallbladder/liver disease, stump appendicitis. Less likely to be diverticulitis due to location. Is not having any testicular pain. Could also be a urinary tract infection or urolithiasis. Will do a CT scan for better evaluation. Will also order CBC, BMP, liver panel, urinalysis, urine drug screen, lipase. He is having this chest pain but does seem more is on the side of his chest and continuous with his abdominal pain. Will do an EKG and troponin. Fluids given for likely dehydration, morphine given for pain, Zofran given for nausea. Patient's lab work returned showing no acute concerning abnormalities. EKG reviewed by myself shows a sinus bradycardia but no other concerning abnormalities. Troponin is within normal limits and considering intermittent chest pains been going for couple days do not believe repeat troponin is necessary. Was still having pain after the morphine and Dilaudid was given. After medications he does have improvement in this pain and does feel like the pain is now tolerable. His nausea has improved. Drug screen is positive for benzodiazepines, amphetamines, opiates. He is prescribed benzodiazepines and amphetamines this is expected the positive. He does states he was given pain medicine and at the emergency department 2 days ago but is unsure exactly what it was. Based on history does seem likely this was also opiates. CT scan reviewed by myself and the radiologist shows no acute concerning abnormalities. He does have a moderate amount of constipation. At this time I cannot say exactly what is causing his symptoms but I do not see any emergent issues. I do believe he is safe for discharge. Will prescribe him a couple days of oxycodone and Zofran via instymeds. He is agreeable to this plan. Lab Data Labs: Lab Results 05/08/25 05/08/25 Range/Units 10:40 12:40 WBC 10.91 (4.50-11.00) K/uL RBC 4.81 (4.30-5.90) m/uL Hgb 14.8 (13.5-17.5) gm/dL Hct 43.9 (37.0-53.0) % MCV 91 (80-100) fL MCH 31 (26-34) pg MCHC 34 (32-36) gm/dL RDW Coeff of Jaxson 12.9 (11.5-15.5) % Plt Count 383 (140-440) K/uL Neut % (Auto) 43.2 (42.0-72.0) % Lymph % (Auto) 45.6 H (20-44) % [place] % (Auto) 7.2 (0.0-11.0) % Eos % (Auto) 3.8 (0.0-7.0) % Baso % (Auto) 0.1 (0.0-3.0) % Neut # (Auto) 4.72 (1.7-7.0) K/uL Lymph # (Auto) 5.00 H (0.90-2.90) K/uL [place] # (Auto) 0.80 (0.00-0.90) K/UL Eos # (Auto) 0.41 (0.00-0.50) K/uL Baso # (Auto) 0.01 (0.00-0.30) K/uL Abs Immat Gran (auto) 0.01 (0.00-0.30) K/uL Imm/Tot Granulo (auto) 0.1 % Sodium 135 (135-149) mmol/L Potassium 3.6 (3.6-5.1) mmol/L Chloride 99 (96-114) mmol/L Carbon Dioxide 31 (20-32) mmol/L Anion Gap 5 L (7-15) mEq/L BUN 17 (5-24) mg/dL Creatinine 0.9 (0.5-1.5) mg/dL Estimated Creat Clear 101.10 Estimated GFR 111 ml/min Glucose 124 H (60-115) mg/dL Calcium 9.2 (8.4-10.6) mg/dL Total Bilirubin 0.2 (0.1-1.5) mg/dL Direct Bilirubin 0.2 (0.0-0.5) mg/dL AST 27 (12-35) U/L ALT 22 (4-50) U/L Alkaline Phosphatase 55 (40-150) U/L Troponin I < 0.01 (0.01-0.04) ng/mL Total Protein 6.8 (6.0-8.3) g/dL Albumin 4.3 (3.3-5.0) g/dL Lipase 26 (23-300) U/L Urine Color Yellow (Yellow) Urine Appearance Clear (Clear) Urine pH 5.5 (5.0-8.5) Ur Specific [place] 1.015 (1.000-1.030) Urine Protein Negative (Negative) Urine Glucose (UA) Negative (Negative) Urine Ketones Negative (Negative) Urine Blood Trace-intact A (Negative) Urine Nitrite Negative (Negative) Urine Bilirubin Negative (Negative) Urine Urobilinogen 0.2 (0.2-1.0) Ur Leukocyte Esterase Negative (Negative) Urine RBC 0-2 (0-2) Urine WBC 2-5 (0-5) Ur Squamous Epith Cells Few (None-Few) Urine Bacteria None (None) Urine Opiates Screen POSITIVE A (Negative) Ur Oxycodone Screen Negative (Negative) Urine Methadone Screen Negative (Negative) Ur Barbiturates Screen Negative (Negative) U Tricyclic Antidepress Negative (Negative) Ur Phencyclidine Scrn Negative (Negative) Ur Amphetamines Screen POSITIVE A (Negative) U Methamphetamines Scrn Negative (Negative) U Benzodiazepines Scrn POSITIVE A (Negative) Urine Cocaine Screen Negative (Negative) U Marijuana (THC) Screen Negative (Negative) Ur Drug Screen Comment See Note SARS-CoV-2 (PCR) Negative SARS-CoV-2 (Negative) Influenza Type A (PCR) Negative PCR FLU A (Negative) Influenza Type B (PCR) Negative PCR FLU B (Negative) RSV (PCR) Negative PCR RSV (Negative) Imaging Data CT scan abdomen and pelvis: Attestation: I have reviewed the pertinent imaging results. Radiologist's impression: 1. Paucity of intra-abdominal fat slightly limits evaluation of the bowel. 2. Moderate stool burden. No evidence of bowel obstruction. 3. Mild hepatic steatosis. Please note that all CT scans at this facility use dose modulation, iterative reconstruction, and/or weight-based dosing when appropriate to reduce radiation dose to as low as reasonably achievable. Dictated by Alonzo Griffith MD @ 05/08/2025 12:07:08 PM ECG Data Attestation: I personally reviewed and interpreted this ECG as follows: Prior ECG tracings: not available for review Interpretation: Sinus bradycardia with a rate of 46 beats per minute, normal intervals, normal axis, no ST or T-wave abnormalities. Discharge Plan Discharge Clinical Impression: Abdominal pain Qualifiers: Abdominal location: unspecified location Qualified Code(s): R10.9 - Unspecified abdominal pain Patient Disposition: Home, Self-Care Condition: Stable Instructions: Abdominal Pain (ED) Additional Instructions: Recommend following up with the primary care provider if pain is not improving. Take Tylenol ibuprofen for pain. If that is not helping use the oxycodone. Take Zofran as needed for nausea. 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 Return to emergency department for new or worsening symptoms Prescriptions: No Action tramadol 50 mg tablet 50 mg PO TID PRN (Reason: pain) Qty: 10 0RF alprazolam 1 mg tablet 1 mg PO DAILY PRN dextroamphetamine-amphetamine 10 mg tablet 1 tab PO DAILY PRN dextroamphetamine-amphetamine 30 mg tablet 1 tab PO BID buspirone 15 mg tablet 15 mg PO .PRN sucralfate 1 gram tablet 1 g PO BID Qty: 60 2RF omeprazole 40 mg capsule,delayed release(DR/EC) 40 mg PO BID Qty: 60 2RF Follow Up/Referrals: Provider,Not a Local [Primary Care Provider, Family Practice] Stand Alone Forms: [employer] Info Instructions
[2025-05-08 11:23] LABS: Albumin* 4.3 g/dL (3.3-5.0); Chloride* 99 mmol/L (96-114); Potassium* 3.6 mmol/L (3.6-5.1); Sodium* 135 mmol/L (135-149)
[2025-05-08 11:26] LABS: Alanine Aminotransferase* 22 U/L (4-50); Alkaline Phosphatase* 55 U/L (40-150); Anion Gap 5 mEq/L (7-15); Aspartate Amino Transferase* 27 U/L (12-35); Bilirubin Direct* 0.2 mg/dL (0.0-0.5); Bilirubin Total* 0.2 mg/dL (0.1-1.5); Blood Urea Nitrogen* 17 mg/dL (5-24); Calcium* 9.2 mg/dL (8.4-10.6); Carbon Dioxide* 31 mmol/L (20-32); Creatinine* 0.9 mg/dL (0.5-1.5); Est. Creatinine Clearance* 101.10; Estimated Glomerular Filt Rate 111 ml/min; Glucose* 124 mg/dL (60-115); Total Protein* 6.8 g/dL (6.0-8.3)
[2025-05-08 11:47] LABS: PCR FLU A Negative PCR FLU A (Negative); PCR FLU B Negative PCR FLU B (Negative); PCR RSV Negative PCR RSV (Negative); SARS PCR* Negative SARS-CoV-2 (Negative)
[2025-05-08 12:55] LABS: Appearance Urine Clear (Clear)
[2025-05-08 13:02] LABS: Cannabinoid Screen Urine Negative (Negative); Methamphetamines Screen Urine Negative (Negative); Tricyclic Antidepressant Urine Negative (Negative)
[2025-05-08 13:20] VITALS: BP 137/100; PULSE 62; RESP 18; O2SAT 98
== END 2025-05-08 14:49 | disposition home or self-care (01) ==
PROVIDERS: Emergency Provider Student in an Organized Health Care Education/Training Program
DX: R10.9 Unspecified abdominal pain (principal)
CPT/HCPCS: 36415; 74177; 80048; 80076; 80306; 81001; 83690; 84484; 85025; 87631; 93005; 96374; 96375; 99284; 99285; J1171; J2270; J2405; J7120; Q9967